=== PATIENT | male | born 1985 | race Caucasian/White ===

== ENCOUNTER 2023-04-17 05:02 | Inpatient (IN) | payer OTHER, SELFPAY ==
[2023-04-17] VITALS (16 sets, daily range): BP systolic 116–154; BP diastolic 82–113; PULSE 112–139; RESP 16–33; TEMP 36.4–37.1; O2SAT 92–98; BMI 37.9
--- NOTE | 2023-04-17 05:22 | ECG_ITS ---
[facility] Test Date: 2023-04-17 Pat Name: Bridger Mccabe Department: Room: Gender: Male Requirements Manager: : 1985 Requested By: Rogelio Duggan Order Number: [id number] [place] MD: Chuckie Levine M.D. Measurements Intervals [place] Rate: 132 P: 66 [place]: 119 QRS: 35 QRSD: 76 T: 66 QT: 277 QTc: 411 Interpretive Statements SINUS TACHYCARDIA WITH SHORT OH INTERVAL No previous ECG available for comparison Electronically Signed On 04-17-2023 12:29:50 CDT by Chuckie Levine M.D. [id number]
--- NOTE | 2023-04-17 05:24 | XRR_ITS ---
PROCEDURE INFORMATION: Exam: XR Chest Exam date and time: 04/17/2023 5:29 AM Age: 37 years old Clinical indication: Other: Tachycardia/diaphoresis; Patient HX: Epigastric pain with tachycardia and diaphoresis. ; Additional info: Ruq epigastric pain TECHNIQUE: Imaging protocol: Radiologic exam of the chest. Views: 1 view. COMPARISON: No relevant prior studies available. FINDINGS: Lungs: Small lung volumes with mild perihilar interstitial opacities, suggestive of pulmonary vascular congestion. Mild right upper lobe and bilateral medial basilar more confluent interstitial opacities and minimal airspace opacities are seen. Early multifocal pneumonia cannot be excluded. Recommend correlation with clinical findings and follow-up. Pleural spaces: No pleural effusion. No pneumothorax. Heart/Mediastinum: Normal heart size. Normal mediastinum. Midline trachea. Bones/joints: No acute osseous abnormalities seen. XR/XR chest 1V portable [id number] IMPRESSION: Small lung volumes with mild perihilar interstitial opacities, suggestive of pulmonary vascular congestion. Mild right upper lobe and bilateral medial basilar more confluent interstitial opacities and minimal airspace opacities. Early multifocal pneumonia cannot be excluded. Recommend correlation with clinical findings and follow-up.
[2023-04-17] MEDS: sodium chloride 0.9% 1,000 ML 999 ML IV (05:28)
[2023-04-17] MEDS: ondansetron 2 mg/ML SDV 2 mL 4 MG IVP (05:29)
[2023-04-17] MEDS: morphine 4 mg/mL SDV 1 mL IVP (05:29)
[2023-04-17 05:31] LABS: Basophils # 0.1 10^3/uL (0.0-0.1); Basophils % 0.5 %; Eosinophils % 0.2 %; Hemoglobin 17.4 g/dL (11.7-16.6); Lymphocytes # 1.1 10^3/uL (0.8-4.8); Lymphocytes % 4.6 %; Mean Corpuscular HGB Conc 34.8 g/dL (30.0-36.0); Mean Corpuscular Hemoglobin 31.5 pg (28.0-34.0); Mean Corpuscular Volume 90.6 fl (80-94); Mean Platelet Volume 9.9 fL (7.4-10.4); Monocytes # 1.8 10^3/uL (0.2-0.9); Neutrophils # 19.85 10^3/uL (1.8-7.7); Nucleated Red Blood Cells % 0 %; Platelet Count 412 10^3/cmm (130-400); Red Blood Count 5.52 10^6/uL (4.1-5.3); Red Cell Distribution Width 12.8 % (12.1-15.1); White Blood Count 23.1 10^3/uL (4.0-10.0)
[2023-04-17 05:54] LABS: Troponin(5th) Baseline 10 ng/L (0-15)
[2023-04-17 05:56] LABS: Alanine Aminotransferase 25 U/L (0-41); Albumin Level 4.5 g/dL (3.5-5.2); Alkaline Phosphatase 72 U/L (40-130); Aspartate Amino Transferase 25 U/L (0-40); Blood Urea Nitrogen 28 mg/dL (6-20); Calcium 9.7 mg/dL (8.5-10.5); Carbon Dioxide 22 mmol/L (22-29); Chloride 85 mmol/L (98-107); Globulin 3.5 g/dL (1.3-4.6); Glomerular Filtration Rate 33.5 mL/min (90-130); Glucose 141 mg/dL (65-115); Lipase 15 U/L (13-60); Osmolality Calculated 272 mOsm/kg (285-295); Sodium 127 mmol/L (136-145); Total Bilirubin 1.4 mg/dL (0.15-1.2)
--- NOTE | 2023-04-17 05:56 | ED_ITS ---
Documented by User: Rogelio Hester DO 04/17/23 15:54 HPI - Abdominal Pain General: Chief Complaint: Abdominal Pain Stated Complaint: ABD Pain Time Seen by Provider: 04/17/23 05:13 Source: patient and family History of Present Illness: 37-year-old male with right-sided upper abdominal pain radiating into his back and shoulder since last night. He notes that its hard to take a deep breath because it hurts. He is not overly short of breath. No overt chest discomfort. He has not had pain like this before. No history of abdominal surgery. No fever. MD elicited complaint: abdominal pain and flank pain Pertinent past history: diverticulitis Onset (ago): hour(s) Pain Consistency: constant Location: Chest, RUQ and R flank Severity: moderate Migration to: no migration Exacerbating factors: movement Relieving factors: nothing Associated Symptoms: Reports chills and nausea; Denies change in stool character, coffee ground emesis, dysuria, fever(s), hematochezia and vomiting Review of Systems Const: Reports: chills; Denies: fever(s) ENMT: Denies: throat pain Card: Reports: chest pain; Denies: palpitations Resp: Reports: dyspnea (mild); Denies: productive cough or non-productive cough GI: Reports: nausea; Denies: vomiting, coffee ground emesis, change in stool character or hematochezia : Denies: dysuria Musc: Denies: neck pain Skin/Breast: Denies: rash Course Vital Signs: Vital signs: Vital Signs Temperature 99.0 F 04/18/23 00:00 Pulse Rate 132 H 04/18/23 00:00 Respiratory Rate 21 H 04/18/23 04:00 Blood Pressure 114/77 04/18/23 00:00 Pulse Oximetry 93 04/18/23 00:00 Oxygen Delivery Me thod Room Air 04/18/23 00:00 MDM - Abdominal Pain Medical Decision Making Patient's EKG shows a sinus tachycardia with a rate of 130. [place] is normal. Intervals are normal. No acute ST changes. He is mildly hypertensive. He is tachypneic. His D-dimer is 6.21. Troponin is normal at 10. CTA has been ordered. He is given morphine and Zofran for pain and nausea. He will be checked out to the oncoming physician at shift change. Lab Data 04/18/23 03:04 04/18/23 03:04 Labs/Radiology: Radiology Impressions Chest X-Ray 04/17/23 05:24 IMPRESSION: Small lung volumes with mild perihilar interstitial opacities, suggestive of pulmonary vascular congestion. Mild right upper lobe and bilateral medial basilar more confluent interstitial opacities and minimal airspace opacities. Early multifocal pneumonia cannot be excluded. Recommend correlation with clinical findings and follow-up. Chest CTA 04/17/23 06:00 IMPRESSION: 1. No CTA evidence of pulmonary embolism, thoracic aortic aneurysm or thoracic aortic dissection. 2. Hypoaeration of the lungs with minimal perihilar hazy opacities. Mild left and minimal right lower lobe basilar atelectasis. No regions of consolidation to suggest pneumonia. 3. Mild distal esophageal fold prominence, which could be related to esophagitis. Recommend correlation with clinical findings. 4. Degenerative changes of the lower thoracic spine, as noted above. Gallbladder Ultrasound 04/17/23 06:18 IMPRESSION: 1. Gnio-cx-kcpxmaerww distended gallbladder. No definite gallstones or gallbladder wall thickening. No biliary ductal dilatation. Exam overall limited, related to bowel gas. Abdomen/Pelvis CT 04/17/23 09:27 IMPRESSION: 1. Acute complicated diverticulitis: Mild descending and moderate sigmoid colonic diverticulosis. Moderate proximal to mid sigmoid colonic wall thickening with adjacent fat stranding. Some extraluminal flecks of air and tiny amount of fluid seen adjacent to the mesenteric border of the mid sigmoid colon (series 3, image 47). 2nd more medial 1.9 x 3 x 2 cm air and fluid collection seen (series 3, image 76, series 5, image 21 and series 6, image 37). These findings are consistent with a small abscess. As an underlying colonic malignancy cannot be excluded, a follow-up examination after a course of treatment is recommended if clinically warranted. 2. Other nonacute findings, as noted above. Laboratory Results WBC 23.1 10^3/uL (4.0-10.0) H 04/17/23 05:20 RBC 5.52 10^6/uL (4.1-5.3) H 04/17/23 05:20 Hgb 17.4 g/dL (11.7-16.6) H 04/17/23 05:20 Hct 50.0 % (42.0-52.0) 06/24/23 05:20 MCV 90.6 fl (80-94) 04/17/23 05:20 MCH 31.5 pg (28.0-34.0) 04/17/23 05:20 MCHC 34.8 g/dL (30.0-36.0) 04/17/23 05:20 RDW 12.8 % (12.1-15.1) 04/17/23 05:20 Plt Count 412 10^3/cmm (130-400) H 04/17/23 05:20 MPV 9.9 fL (7.4-10.4) 04/17/23 05:20 Neut % (Auto) 86.0 % 04/17/23 05:20 Lymph % (Auto) 4.6 % 04/17/23 05:20 [place] % (Auto) 8.0 % 04/17/23 05:20 Eos % (Auto) 0.2 % 04/17/23 05:20 Baso % (Auto) 0.5 % 04/17/23 05:20 Neut # (Auto) 19.85 10^3/uL (1.8-7.7) H 04/17/23 05:20 Lymph # (Auto) 1.1 10^3/uL (0.8-4.8) 04/17/23 05:20 [place] # (Auto) 1.8 10^3/uL (0.2-0.9) H 04/17/23 05:20 Eos # (Auto) 0.0 10^3/uL (0.0-0.8) 04/17/23 05:20 Baso # (Auto) 0.1 10^3/uL (0.0-0.1) 04/17/23 05:20 Nucleated RBC % (auto) 0 % 04/17/23 05:20 Nucleated RBCs # 0.0 /100WBC 04/17/23 05:20 D-Dimer 6.21 ug/mIFEU (0-0.59) H 04/17/23 05:20 Specimen Type Arterial 04/17/23 07:50 Sample Site Radial, right 04/17/23 07:50 ABG pH 7.37 (7.35-7.45) 04/17/23 07:50 ABG pCO2 36.2 mmHg (35-45) 04/17/23 07:50 ABG pO2 75.1 mmHg (80.0-100.0) L 04/17/23 07:50 ABG HCO3 21.1 mmol/L (22-26) L 04/17/23 07:50 ABG Base Excess -3.5 mmol/L (-2.0-2.0) L 04/17/23 07:50 Obie Test Pos 04/17/23 07:50 Hematocrit 48.1 % (42-52) 04/17/23 07:50 O2 Delivery Device Room air 04/17/23 07:50 FiO2 21.0 % 04/17/23 07:50 Marine Fisheries Technician ID [place] 04/17/23 07:50 Sodium 127 mmol/L (136-145) L 04/17/23 05:20 Potassium 4.7 mmol/L (3.5-5.1) 04/17/23 05:20 Chloride 85 mmol/L (98-107) L 04/17/23 05:20 Carbon Dioxide 22 mmol/L (22-29) 04/17/23 05:20 Anion Gap 24.7 (5-19) H 04/17/23 05:20 BUN 28 mg/dL (6-20) H 04/17/23 05:20 Creatinine 2.2 mg/dL (0.7-1.2) H 04/17/23 05:20 GFR Calculation 33.5 mL/min (90-130) L 04/17/23 05:20 Glucose 141 mg/dL (65-115) H 04/17/23 05:20 Calculated Osmolality 272 mOsm/kg (285-295) L 04/17/23 05:20 Lactic Acid 2.1 mmol/L (0.5-2.2) 04/17/23 06:30 Lactic Acid (Sepsis) 1.6 mmol/L (0.5-2.2) 04/17/23 09:12 Calcium 9.7 mg/dL (8.5-10.5) 04/17/23 05:20 Total Bilirubin 1.4 mg/dL (0.15-1.2) H 04/17/23 05:20 AST 25 U/L (0-40) 04/17/23 05:20 ALT 25 U/L (0-41) 04/17/23 05:20 Alkaline Phosphatase 72 U/L (40-130) 04/17/23 05:20 Troponin T Baseline 10 ng/L (0-15) 04/17/23 05:20 Troponin T 120 Minute 6.93 ng/L (0-15) 04/17/23 07:20 Delta Troponin T -3.07 ABS# (0-10) L 04/17/23 07:20 C-Reactive Protein 367.2 mg/L (0.0-4.9) H 04/17/23 05:20 Total Protein 8.0 g/dL (6.6-8.7) 04/17/23 05:20 Albumin 4.5 g/dL (3.5-5.2) 04/17/23 05:20 Globulin 3.5 g/dL (1.3-4.6) 04/17/23 05:20 Lipase 15 U/L (13-60) 04/17/23 05:20 Urine Color Yellow (Yellow) 04/17/23 07:18 Urine Appearance Sl hazy (CLEAR) A 04/17/23 07:18 Urine pH 5 (5-7) 04/17/23 07:18 Ur Specific [place] 1.020 (1.005-1.030) 04/17/23 07:18 Urine Protein 1+ (Negative) H 04/17/23 07:18 Urine Glucose (UA) Norm (Normal) 04/17/23 07:18 Urine Ketones Negative (Negative) 04/17/23 07:18 Urine Blood 3+ (Negative) H 04/17/23 07:18 Urine Nitrate Negative (Negative) 04/17/23 07:18 Urine Bilirubin Neg (Negative) 04/17/23 07:18 Urine Urobilinogen 1 mg/dL (Negative) H 04/17/23 07:18 Ur Leukocyte Esterase Trace (Negative) H 04/17/23 07:18 Urine RBC None /hpf (0-2) 04/17/23 07:18 Urine WBC 5-10 /hpf (0-5) H 04/17/23 07:18 Ur Squamous Epith Cells None /hpf (0-5) 04/17/23 07:18 Amorphous Sediment Not Reportable 04/17/23 07:18 Urine Bacteria 1+ /hpf (NONE) H 04/17/23 07:18 Hyaline Casts 15-25 /lpf H 04/17/23 07:18 Urine Mucus 1+ /hpf 04/17/23 07:18 Critical Care Time Critical Care Time: Critical Care Time: Yes Total Critical Care Time: 35 Attestation: This case had a high probability of a clinically significant, sudden, or life threatening deterioration of this patient's condition which required my full and direct attention, intervention and personal management. Time is independent of any procedures performed. Discharge Plan Discharge Patient Disposition: Admitted As Inpatient Admit Provider: Syd Leo Clinical Impression: Diverticulitis of large intestine with complication, Acute kidney injury Condition: Serious Sign Out Sign Out Data: Patient Sign Out occurred on 04/17/23 at 08:07. Patient's care was discussed, and care was transferred from to Nathan Li DO. Coding Level of Care Code ED Assistant Terminal Manager for Chg Fwd Documented by User: Nathan Li DO 04/18/23 08:09 HPI - Abdominal Pain General: Chief Complaint: Abdominal Pain Stated Complaint: ABD Pain Time Seen by Provider: 04/17/23 05:13 Course Vital Signs: Vital signs: Vital Signs Temperature 99.0 F 04/18/23 00:00 Pulse Rate 132 H 04/18/23 00:00 Respiratory Rate 21 H 04/18/23 04:00 Blood Pressure 114/77 04/18/23 00:00 Pulse Oximetry 93 04/18/23 00:00 Oxygen Delivery Me thod Room Air 04/18/23 00:00 MDM - Abdominal Pain Medical Decision Making Patient's EKG shows a sinus tachycardia with a rate of 130. [place] is normal. Intervals are normal. No acute ST changes. He is mildly hypertensive. He is tachypneic. His D-dimer is 6.21. Troponin is normal at 10. CTA has been ordered. He is given morphine and Zofran for pain and nausea. He will be checked out to the oncoming physician at shift change. Care assumed at change of shift CTA of the chest is pending which was negative for acute pulmonary embolism. Patient has abdominal pain with markedly elevated white count. CT abdomen done shows diverticulitis with perforation discussed Dr. Ahmet Land and cultures have been done. Will admit IV fluids n.p.o. continue antibiotics discussed with the patient orders written. Medical Records I reviewed the patient's medical records. Lab Data I reviewed the patient's lab results. 04/18/23 03:04 04/18/23 03:04 Labs/Radiology: Radiology Impressions Chest X-Ray 04/17/23 05:24 IMPRESSION: Small lung volumes with mild perihilar interstitial opacities, suggestive of pulmonary vascular congestion. Mild right upper lobe and bilateral medial basilar more confluent interstitial opacities and minimal airspace opacities. Early multifocal pneumonia cannot be excluded. Recommend correlation with clinical findings and follow-up. Chest CTA 04/17/23 06:00 IMPRESSION: 1. No CTA evidence of pulmonary embolism, thoracic aortic aneurysm or thoracic aortic dissection. 2. Hypoaeration of the lungs with minimal perihilar hazy opacities. Mild left and minimal right lower lobe basilar atelectasis. No regions of consolidation to suggest pneumonia. 3. Mild distal esophageal fold prominence, which could be related to esophagitis. Recommend correlation with clinical findings. 4. Degenerative changes of the lower thoracic spine, as noted above. Gallbladder Ultrasound 04/17/23 06:18 IMPRESSION: 1. Skoh-ro-nhekhoooyd distended gallbladder. No definite gallstones or gallbladder wall thickening. No biliary ductal dilatation. Exam overall limited, related to bowel gas. Abdomen/Pelvis CT 04/17/23 09:27 IMPRESSION: 1. Acute complicated diverticulitis: Mild descending and moderate sigmoid colonic diverticulosis. Moderate proximal to mid sigmoid colonic wall thickening with adjacent fat stranding. Some extraluminal flecks of air and tiny amount of fluid seen adjacent to the mesenteric border of the mid sigmoid colon (series 3, image 47). 2nd more medial 1.9 x 3 x 2 cm air and fluid collection seen (series 3, image 76, series 5, image 21 and series 6, image 37). These findings are consistent with a small abscess. As an underlying colonic malignancy cannot be excluded, a follow-up examination after a course of treatment is recommended if clinically warranted. 2. Other nonacute findings, as noted above. Laboratory Results WBC 23.1 10^3/uL (4.0-10.0) H 04/17/23 05:20 RBC 5.52 10^6/uL (4.1-5.3) H 04/17/23 05:20 Hgb 17.4 g/dL (11.7-16.6) H 04/17/23 05:20 Hct 50.0 % (42.0-52.0) 04/17/23 05:20 MCV 90.6 fl (80-94) 04/17/23 05:20 MCH 31.5 pg (28.0-34.0) 04/17/23 05:20 MCHC 34.8 g/dL (30.0-36.0) 04/17/23 05:20 RDW 12.8 % (12.1-15.1) 04/17/23 05:20 Plt Count 412 10^3/cmm (130-400) H 04/17/23 05:20 MPV 9.9 fL (7.4-10.4) 04/17/23 05:20 Neut % (Auto) 86.0 % 04/17/23 05:20 Lymph % (Auto) 4.6 % 04/17/23 05:20 [place] % (Auto) 8.0 % 04/17/23 05:20 Eos % (Auto) 0.2 % 04/17/23 05:20 Baso % (Auto) 0.5 % 04/17/23 05:20 Neut # (Auto) 19.85 10^3/uL (1.8-7.7) H 04/17/23 05:20 Lymph # (Auto) 1.1 10^3/uL (0.8-4.8) 04/17/23 05:20 [place] # (Auto) 1.8 10^3/uL (0.2-0.9) H 04/17/23 05:20 Eos # (Auto) 0.0 10^3/uL (0.0-0.8) 04/17/23 05:20 Baso # (Auto) 0.1 10^3/uL (0.0-0.1) 04/17/23 05:20 Nucleated RBC % (auto) 0 % 04/17/23 05:20 Nucleated RBCs # 0.0 /100WBC 04/17/23 05:20 D-Dimer 6.21 ug/mIFEU (0-0.59) H 04/17/23 05:20 Specimen Type Arterial 04/17/23 07:50 Sample Site Radial, right 04/17/23 07:50 ABG pH 7.37 (7.35-7.45) 04/17/23 07:50 ABG pCO2 36.2 mmHg (35-45) 04/17/23 07:50 ABG pO2 75.1 mmHg (80.0-100.0) L 04/17/23 07:50 ABG HCO3 21.1 mmol/L (22-26) L 04/17/23 07:50 ABG Base Excess -3.5 mmol/L (-2.0-2.0) L 04/17/23 07:50 Obie Test Pos 04/17/23 07:50 Hematocrit 48.1 % (42-52) 04/17/23 07:50 O2 Delivery Device Room air 04/17/23 07:50 FiO2 21.0 % 04/17/23 07:50 Marine Fisheries Technician ID [place] 04/17/23 07:50 Sodium 127 mmol/L (136-145) L 04/17/23 05:20 Potassium 4.7 mmol/L (3.5-5.1) 04/17/23 05:20 Chloride 85 mmol/L (98-107) L 04/17/23 05:20 Carbon Dioxide 22 mmol/L (22-29) 04/17/23 05:20 Anion Gap 24.7 (5-19) H 04/17/23 05:20 BUN 28 mg/dL (6-20) H 04/17/23 05:20 Creatinine 2.2 mg/dL (0.7-1.2) H 04/17/23 05:20 GFR Calculation 33.5 mL/min (90-130) L 04/17/23 05:20 Glucose 141 mg/dL (65-115) H 04/17/23 05:20 Calculated Osmolality 272 mOsm/kg (285-295) L 04/17/23 05:20 Lactic Acid 2.1 mmol/L (0.5-2.2) 04/17/23 06:30 Lactic Acid (Sepsis) 1.6 mmol/L (0.5-2.2) 04/17/23 09:12 Calcium 9.7 mg/dL (8.5-10.5) 04/17/23 05:20 Total Bilirubin 1.4 mg/dL (0.15-1.2) H 04/17/23 05:20 AST 25 U/L (0-40) 04/17/23 05:20 ALT 25 U/L (0-41) 04/17/23 05:20 Alkaline Phosphatase 72 U/L (40-130) 04/17/23 05:20 Troponin T Baseline 10 ng/L (0-15) 04/17/23 05:20 Troponin T 120 Minute 6.93 ng/L (0-15) 04/17/23 07:20 Delta Troponin T -3.07 ABS# (0-10) L 04/17/23 07:20 C-Reactive Protein 367.2 mg/L (0.0-4.9) H 04/17/23 05:20 Total Protein 8.0 g/dL (6.6-8.7) 04/17/23 05:20 Albumin 4.5 g/dL (3.5-5.2) 04/17/23 05:20 Globulin 3.5 g/dL (1.3-4.6) 04/17/23 05:20 Lipase 15 U/L (13-60) 04/17/23 05:20 Urine Color Yellow (Yellow) 04/17/23 07:18 Urine Appearance Sl hazy (CLEAR) A 04/17/23 07:18 Urine pH 5 (5-7) 04/17/23 07:18 Ur Specific [place] 1.020 (1.005-1.030) 04/17/23 07:18 Urine Protein 1+ (Negative) H 04/17/23 07:18 Urine Glucose (UA) Norm (Normal) 04/17/23 07:18 Urine Ketones Negative (Negative) 04/17/23 07:18 Urine Blood 3+ (Negative) H 04/17/23 07:18 Urine Nitrate Negative (Negative) 04/17/23 07:18 Urine Bilirubin Neg (Negative) 04/17/23 07:18 Urine Urobilinogen 1 mg/dL (Negative) H 04/17/23 07:18 Ur Leukocyte Esterase Trace (Negative) H 04/17/23 07:18 Urine RBC None /hpf (0-2) 04/17/23 07:18 Urine WBC 5-10 /hpf (0-5) H 04/17/23 07:18 Ur Squamous Epith Cells None /hpf (0-5) 04/17/23 07:18 Amorphous Sediment Not Reportable 04/17/23 07:18 Urine Bacteria 1+ /hpf (NONE) H 04/17/23 07:18 Hyaline Casts 15-25 /lpf H 04/17/23 07:18 Urine Mucus 1+ /hpf 04/17/23 07:18 Discharge Plan Discharge Patient Disposition: Admitted As Inpatient Admit Provider: Syd Leo Clinical Impression: Diverticulitis of large intestine with complication, Acute kidney injury Condition: Serious Sign Out Sign Out Data: Patient Sign Out occurred on 04/17/23 at 08:07. Patient's care was discussed, and care was transferred from to Nathan Li DO. Coding Level of Care Code ED Assistant Terminal Manager for Carlos Lazcano
[2023-04-17 05:58] LABS: D Dimer 6.21 ug/mIFEU (0-0.59)
[2023-04-17 05:59] LABS: Anion Gap 24.7 (5-19); Potassium 4.7 mmol/L (3.5-5.1)
--- NOTE | 2023-04-17 06:00 | CTR_ITS ---
PROCEDURE INFORMATION: Exam: CTA Chest With Contrast Exam date and time: 04/17/2023 6:13 AM Age: 37 years old Clinical indication: Pain; Chest pressure; Additional info: Chest pain TECHNIQUE: Imaging protocol: Computed tomographic angiography of the chest with contrast. Exam focused on the arteries. 3D rendering (Not supervised by radiologist): MIP and/or 3D reconstructed images were created by the technologist. Radiation optimization: All CT scans at this facility use at least one of these dose optimization techniques: automated exposure control; mA and/or kV adjustment per patient size (includes targeted exams where dose is matched to clinical indication); or iterative reconstruction. Contrast material: OMNI 350; Contrast volume: 79 ml; Contrast route: INTRAVENOUS (IV); REPORTING DATA: Count of CT and Cardiac NM exams in prior 12 months: This patient has received 0 known CTs and 0 known cardiac nuclear medicine studies in the 12 months prior to the current study. COMPARISON: CR (CHEST, ) 04/17/2023 5:29 AM RADIATION DOSE METRICS: Total DLP (mGy-cm): 461.14 FINDINGS: Pulmonary arteries: No CT evidence for segmental pulmonary emboli. The main pulmonary arteries and outflow trunk are unremarkable. Aorta: No thoracic aortic aneurysm. No thoracic aortic dissection. Trachea: The central airway is normal. Lungs: Small lung volumes. Hypoaeration of the lungs with minimal perihilar hazy opacities. Mild left and minimal right lower lobe basilar atelectasis. No regions of consolidation to suggest pneumonia. No interlobular septal thickening or honeycombing seen to suggest interstitial lung disease on CT. Pleural spaces: No pneumothorax. No pleural effusion. Heart: The heart size is within normal limits. The RV/LV ratio is normal at 1 (no CT evidence of RV strain). There is no pericardial effusion. No coronary arterial atherosclerotic vascular calcifications. Lymph nodes: Nonspecific prominent subcentimeter multiple prevascular lymph nodes are seen, the largest measuring 0.8 x 0.8 cm (series 6, images 113 to 155). No right paratracheal, pretracheal, subcarinal or hilar lymphadenopathy. Bones/joints: No acute osseous abnormalities. Mild kyphotic curvature of the thoracic spine. Multiple Schmorl's nodes in the lower thoracic region. Wedge-shaped contour of the T12 vertebral body is seen with 20% vertebral body height loss, age indeterminate. Moderate degenerative disc disease changes are seen in the lower thoracic spine. Soft tissues: Unremarkable. Other findings: Mild distal esophageal fold prominence, which could be related to esophagitis. Recommend correlation with clinical findings. CT/CT angio chest PE protcl [id number] IMPRESSION: 1. No CTA evidence of pulmonary embolism, thoracic aortic aneurysm or thoracic aortic dissection. 2. Hypoaeration of the lungs with minimal perihilar hazy opacities. Mild left and minimal right lower lobe basilar atelectasis. No regions of consolidation to suggest pneumonia. 3. Mild distal esophageal fold prominence, which could be related to esophagitis. Recommend correlation with clinical findings. 4. Degenerative changes of the lower thoracic spine, as noted above.
[2023-04-17 06:07] LABS: Slide Review Slide Review Perform
[2023-04-17 06:09] LABS: C Reactive Protein 367.2 mg/L (0.0-4.9)
[2023-04-17] MEDS: iohexol 350 mg/mL 500 mL Btl (per mL) IV (06:14)
--- NOTE | 2023-04-17 06:18 | USR_ITS ---
PROCEDURE INFORMATION: Exam: US Abdomen, Limited; Right Upper Quadrant Exam date and time: 04/17/2023 8:27 AM Age: 37 years old Clinical indication: Abdominal pain; Epigastric; Additional info: Ruq pain TECHNIQUE: Imaging protocol: Real time ultrasound of the abdomen with image documentation. Limited exam focused on the right upper quadrant. COMPARISON: CT angio chest PE protcl [id number] 04/17/2023 6:13 AM FINDINGS: Liver: Assessment of the liver is very limited due to body habitus and bowel gas. Normal visualized liver parenchymal echo texture. Main portal vein appears unremarkable. Gallbladder: The nlwd-oo-sclrdkvvcg distended gallbladder. There are no gallstones, gallbladder sludge, pericholecystic fluid or wall thickening. Biliary ducts: The intrahepatic and extrahepatic bile ducts are not dilated with the common bile duct measuring 0.5 cm. The distal common bile duct is not well seen. Pancreas: Not well seen, related to bowel gas in the abdomen. Right kidney: The right kidney measures 10.6 x 6.3 x 5.2 cm. There is normal renal contour and morphology, with normal parenchymal echotexture. There is no hydronephrosis. Aorta: Not well seen, related to bowel gas in the abdomen. Inferior vena cava: Not well seen, related to bowel gas in the abdomen. Intraperitoneal space: There is no right abdominal ascites. Other findings: Exam overall limited due to bowel gas in the abdomen. US/US gall bladder [id number] IMPRESSION: 1. Duyd-eh-ixssytbxss distended gallbladder. No definite gallstones or gallbladder wall thickening. No biliary ductal dilatation. Exam overall limited, related to bowel gas.
[2023-04-17] MEDS: piperacillin-tazobactam 4.5 GM in sodium chloride 0.9% (plus) 50 ML IV (06:55)
[2023-04-17 07:10] LABS: Lactic Sepsis W/Reflex 2.1 mmol/L (0.5-2.2)
--- NOTE | 2023-04-17 07:21 | ECG_ITS ---
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 Measurements Intervals [place] Rate: 128 P: 65 IN: 127 QRS: 34 QRSD: 85 T: 35 QT: 290 QTc: 424 Interpretive Statements SINUS TACHYCARDIA NONSPECIFIC T-WAVE ABNORMALITY No previous ECG available for comparison Electronically Signed On 04-17-2023 8:36:25 CDT by Chuckie Levine M.D. [id number]
[2023-04-17 07:45] LABS: Blood Urine 3+ (Negative); Glucose Urine UA Norm (Normal); Ketones Urine Negative (Negative); Nitrate Urine Negative (Negative); Protein Urine 1+ (Negative); Urine Appearance SL Hazy (CLEAR); Urine Color Yellow (Yellow); pH Urine 5 (5-7)
[2023-04-17 07:46] LABS: Add Urine Microscopic? YES; Bilirubin Urine Neg (Negative); Leukocyte Esterase Urine Trace (Negative); Urobilinogen Urine 1 mg/dL (Negative)
[2023-04-17 07:49] LABS: Bacteria Urine 1+ /hpf; Mucus Urine 1+ /hpf
[2023-04-17 07:50] LABS: Hyaline Casts Urine 15-25 /lpf
[2023-04-17 07:51] LABS: Add Urine Culture? No
[2023-04-17 07:57] LABS: Troponin 5 2HR 6.93 ng/L (0-15)
[2023-04-17 08:04] LABS: ABG PCO2 36.2 mmHg (35-45); ABG PH Result 7.37 (7.35-7.45); Arterial Blood Gas Hematocrit 48.1 % (42-52); Base Excess ABG -3.5 mmol/L (-2.0-2.0); Blood Gas Allen Test Pos; Blood Gas Operator Identificat MONRO; Blood Gas Sample Site Radial, right; Blood Gas Sample Type Arterial; HCO3 ABG 21.1 mmol/L (22-26); Oxygen Device ROOM AIR; PO2 ABG 75.1 mmHg (80.0-100.0)
[2023-04-17 08:13] LABS: Reflex Lactate Order REFLEX LACTIC ORDERD
[2023-04-17 08:21] LABS: Troponin 5 2HR Delta -3.07 ABS# (0-10)
--- NOTE | 2023-04-17 09:27 | CTR_ITS ---
PROCEDURE INFORMATION: Exam: CT Abdomen And Pelvis Without Contrast Exam date and time: 04/17/2023 9:57 AM Age: 37 years old Clinical indication: Abdominal pain; Flank; Right; Patient HX: Had cta chest at 0600 TECHNIQUE: Imaging protocol: Computed tomography of the abdomen and pelvis without contrast. Radiation optimization: All CT scans at this facility use at least one of these dose optimization techniques: automated exposure control; mA and/or kV adjustment per patient size (includes targeted exams where dose is matched to clinical indication); or iterative reconstruction. REPORTING DATA: Count of CT and Cardiac NM exams in prior 12 months: This patient has received 0 known CTs and 0 known cardiac nuclear medicine studies in the 12 months prior to the current study. COMPARISON: US gall bladder [id number] 04/17/2023 8:27 AM RADIATION DOSE METRICS: Total DLP (mGy-cm): 1136.57 FINDINGS: Lungs: Minimal left lower lobe atelectasis is seen. Mild left coronary arterial atherosclerotic vascular calcifications. Liver: The non-contrast enhanced liver appears unremarkable. Gallbladder and bile ducts: Moderately distended gallbladder. No calcified stones. No biliary ductal dilatation. Pancreas: The non-contrast enhanced pancreas appears grossly unremarkable. No ductal dilation. Spleen: The non-contrast enhanced spleen appears unremarkable. No splenomegaly. Adrenal glands: Unremarkable non-contrast CT appearance of the adrenals. No definte masses. Kidneys and ureters: The noncontrast enhanced kidneys show no contour deforming masses. Residual contrast material is seen in bilateral renal collecting systems with segmental contrast filling of the ureters, which appear unremarkable. Stomach and bowel: The noncontrast opacified stomach appears normal. Small hiatal hernia is seen. The noncontrast opacified loops of small bowel in the abdomen and pelvis show some mildly distended fluid-filled loops of small bowel in the pelvis, likely representing adynamic ileus. The noncontrast opacified loops of colon show some fluid in the transverse colon. There is mild descending and moderate sigmoid colonic diverticulosis. Moderate proximal to mid sigmoid colonic wall thickening is seen with adjacent fat stranding. These findings are suggestive of acute diverticulitis. Some extraluminal flecks of air and tiny amount of fluid is seen adjacent to the mesenteric border of the mid sigmoid colon (series 3, image 47). There is also a 2nd more medial 1.9 x 3 x 2 cm air and fluid collection seen (series 3, image 76, series 5, image 21 and series 6, image 37). These findings are consistent with a small abscess. As an underlying colonic malignancy cannot be excluded, a follow-up examination after a course of treatment is recommended if clinically warranted. Appendix: No evidence of appendicitis. Intraperitoneal space: No free air. No significant fluid collection. Vasculature: No abdominal aortic aneurysm. Lymph nodes: No enlarged lymph nodes. Urinary bladder: The contrast filled bladder appears normal. Reproductive: Unremarkable as visualized. Bones/joints: No acute osseous abnormality seen. Moderate kyphotic curvature of the visualized lower thoracic spine is seen. Severe degenerative disc disease changes and multiple Schmorl's nodes are seen in the lower thoracic and upper to mid lumbar spine regions. There is osteopenia. Mild bilateral hip degenerative changes. Soft tissues: Small umbilical hernia, containing peritoneal fat. CT/CT abdomen pelvis wo con [id number] IMPRESSION: 1. Acute complicated diverticulitis: Mild descending and moderate sigmoid colonic diverticulosis. Moderate proximal to mid sigmoid colonic wall thickening with adjacent fat stranding. Some extraluminal flecks of air and tiny amount of fluid seen adjacent to the mesenteric border of the mid sigmoid colon (series 3, image 47). 2nd more medial 1.9 x 3 x 2 cm air and fluid collection seen (series 3, image 76, series 5, image 21 and series 6, image 37). These findings are consistent with a small abscess. As an underlying colonic malignancy cannot be excluded, a follow-up examination after a course of treatment is recommended if clinically warranted. 2. Other nonacute findings, as noted above.
[2023-04-17 09:38] LABS: Lactic Acid level (Lactate) 1.6 mmol/L (0.5-2.2)
--- NOTE | 2023-04-17 11:25 | ECG_ITS ---
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 Measurements Intervals Scott Rate: 124 P: 56 DC: 125 QRS: 37 QRSD: 89 T: 33 QT: 336 QTc: 484 Interpretive Statements SINUS TACHYCARDIA NONSPECIFIC T-WAVE ABNORMALITY Compared to ECG 04/17/2023 07:21:02 No significant changes Electronically Signed On 04-17-2023 12:30:19 CDT by Chuckie Levine M.D. [email or web address]
--- NOTE | 2023-04-17 13:00 | PM.HP ---
Providers/Chief Complaint Admitting Physician: Syd Leo DO Chief Complaint: ABD Pain History of Present Illness Bridger Mccabe is a 37 year old male presents to the hospital with a 3-day history of right lower quadrant abdominal pain. He does endorse fever and chills at home. Denies any nausea or vomiting. Denies any diarrhea or constipation. Denies any hematochezia and/or melena. Palpation makes pain worse. Nothing makes pain better. The pain does not radiate. He denies any family history of colon cancer. He has never had a colonoscopy. CT of the abdomen pelvis shows complicated diverticulitis with microperforation and early abscess formation up to 3 cm in the pelvis. Review of Systems General: Reports: 10 or more systems reviewed and unremarkable except in HPI and below Medications/Allergies Home Medications Medication Instructions Recorded Confirmed Last Taken Type amoxicillin 875 mg-potassium 1 tab PO BID 04/17/23 04/17/23 04/16/23 History clavulanate 125 mg tablet hydrocodone 5 mg-acetaminophen 325 1 tab PO Q6H PRN Pain 04/17/23 04/17/23 04/17/23 History mg tablet Vitals/I&O/Wt Last Vital Signs Temp 97.6 F 04/17/23 05:12 Pulse 118 H 04/17/23 12:00 Resp 18 04/17/23 12:00 BP 130/89 04/17/23 09:00 Pulse Ox 96 04/17/23 10:00 O2 Del Method Room Air 04/17/23 08:33 04/16/23 04/17/23 04/17/23 22:59 06:59 14:59 Intake Total 1050 / 1050 Balance 1050 / 1050 Weight last 48 hrs Weight 235 lb Physical Exam Narrative: General : Patient is well developed , no acute distress, oriented x3 Head : Normal cephalic, a-traumatic. Ears : Pinnae and external canal are normal. Hearing is normal. Eyes : PERRLA, Sclera and injection are normal. No conjunctival discharge. Nose : Mucous membranes are without erythema. Throat : buccal mucosa is normal, gums are without significant recession or hypertrophy. Lungs : Equal chest rise bilaterally, no use of accessory muscles, trachea is midline. Cor : Rate and rhythm are normal. Abdomen : Soft, mildly distended, mild right lower quadrant tenderness, no guarding rebound or masses Extremities : No edema, no cyanosis or clubbing, dorsalis pedis pulses are present bilaterally, non-tender to palpation of calves. Upper extremities are normal bilaterally. Back : non-tender to palpation, no CVA tenderness. Neuro : CN II - XII intact, Upper and lower extremities have equal and full strength Data 04/17/23 05:20 04/17/23 05:20 Micro: Microbiology 04/17/23 06:30 Blood Culture - Preliminary Blood SPECIMEN COLLECTED 04/17/23 06:30 Blood Culture - Preliminary Blood SPECIMEN COLLECTED A&P Assessment and plan (1) Diverticulitis of large intestine with complication: (2) Severe sepsis: (3) Acute kidney injury: Plan Zosyn Normal saline at 200 mL/h Pain control N.p.o. Repeat labs in the morning Conservative management for now. If he worsens he will need a Alanis's procedure. Ideally he improves and goes home on a regular diet with follow-up for a colonoscopy in 6 to 8 weeks followed by elective sigmoidectomy. Attestations Medical Necessity Statement*: Patient requires at least 2 nights in the hospital for IV antibiotics and therapy for complicated diverticulitis Coding Level of Care Code Acute Code for [facility] Diagnoses Diverticulitis of large intestine with complication K57.32 Severe sepsis A41.9; R65.20 Acute kidney injury N17.9
[2023-04-17] MEDS: pantoprazole 40 mg SDV IVP (14:03)
[2023-04-17] MEDS: sodium chloride 0.9% 1,000 ML 200 ML IV ×2 (14:04→18:15)
[2023-04-17] MEDS: enoxaparin 40 mg/0.4 mL Syringe SUBCUT (14:05)
[2023-04-17] MEDS: HYDROmorphone 1 mg/mL INJ 1 mL IVP (15:23)
[2023-04-17] MEDS: piperacillin-tazobactam 3.375 GM in sodium chloride 0.9% (plus) 50 ML IV ×2 (15:23→23:05)
[2023-04-18] VITALS (7 sets, daily range): BP systolic 114–135; BP diastolic 77–87; PULSE 60–132; RESP 17–26; TEMP 36.4–37.5; O2SAT 90–95
[2023-04-18] MEDS: sodium chloride 0.9% 1,000 ML 200 ML IV ×5 (00:45→21:05)
[2023-04-18 04:01] LABS: Basophils # 0.1 10^3/uL (0.0-0.1); Basophils % 0.3 %; Hemoglobin 13.5 g/dL (11.7-16.6); Lymphocytes # 0.5 10^3/uL (0.8-4.8); Lymphocytes % 3.4 %; Mean Corpuscular HGB Conc 35.5 g/dL (30.0-36.0); Mean Corpuscular Hemoglobin 32.6 pg (28.0-34.0); Mean Corpuscular Volume 91.8 fl (80-94); Mean Platelet Volume 10.3 fL (7.4-10.4); Monocytes # 1.2 10^3/uL (0.2-0.9); Monocytes % 7.6 %; Neutrophils % 87.6 %; Nucleated Red Blood Cells % 0 %; Platelet Count 312 10^3/cmm (130-400); Red Blood Count 4.14 10^6/uL (4.1-5.3); Red Cell Distribution Width 13.3 % (12.1-15.1); White Blood Count 15.8 10^3/uL (4.0-10.0)
[2023-04-18 04:17] LABS: Anion Gap 16.7 (5-19); Blood Urea Nitrogen 20 mg/dL (6-20); Calcium 8.6 mg/dL (8.5-10.5); Carbon Dioxide 23 mmol/L (22-29); Chloride 96 mmol/L (98-107); Glomerular Filtration Rate 107.6 mL/min (90-130); Glucose 79 mg/dL (65-115); Magnesium 1.8 mg/dL (1.7-2.3); Osmolality Calculated 276 mOsm/kg (285-295); Phosphorus 2.6 mg/dL (2.5-4.5); Potassium 3.7 mmol/L (3.5-5.1); Sodium 132 mmol/L (136-145)
[2023-04-18 04:24] LABS: Lactic Sepsis W/Reflex 1.3 mmol/L (0.5-2.2)
[2023-04-18 04:26] LABS: Alanine Aminotransferase 15 U/L (0-41); Albumin Level 2.9 g/dL (3.5-5.2); Alkaline Phosphatase 240 U/L (40-130); Anion Gap 16.7 (5-19); Aspartate Amino Transferase 11 U/L (0-40); Blood Urea Nitrogen 20 mg/dL (6-20); Calcium 8.5 mg/dL (8.5-10.5); Carbon Dioxide 23 mmol/L (22-29); Chloride 96 mmol/L (98-107); Globulin 3.5 g/dL (1.3-4.6); Glomerular Filtration Rate 107.6 mL/min (90-130); Glucose 77 mg/dL (65-115); Osmolality Calculated 275 mOsm/kg (285-295); Potassium 3.7 mmol/L (3.5-5.1); Sodium 132 mmol/L (136-145); Total Bilirubin 0.5 mg/dL (0.15-1.2); Total Protein 6.4 g/dL (6.6-8.7)
[2023-04-18 04:40] LABS: Slide Review Slide Review Perform
[2023-04-18] MEDS: piperacillin-tazobactam 3.375 GM in sodium chloride 0.9% (plus) 50 ML IV ×3 (06:37→22:33)
[2023-04-18] MEDS: HYDROmorphone 1 mg/mL INJ 1 mL IVP (08:52)
--- NOTE | 2023-04-18 11:48 | PM.PN ---
Subjective Subjective: Patient seen and examined. Pain improved. Still no BM or flatus Vitals/I&O/Wt Last Vital Signs Temp 97.5 F L 04/18/23 08:00 Pulse 124 H 04/18/23 08:00 Resp 18 04/18/23 08:52 BP 122/81 04/18/23 08:00 Pulse Ox 93 04/18/23 08:52 O2 Del Method Room Air 04/18/23 08:00 04/17/23 04/18/23 04/18/23 22:59 06:59 14:59 Intake Total 886.667 / 1837.216 9985 / 3986.667 1050 / 1050 Balance 886.667 / 2230.512 6863 / 3986.667 1050 / 1050 Weight last 48 hrs Weight 235 lb Physical Exam Narrative: : No acute distress, awake alert and oriented x3 Abdomen: Soft, nondistended, mild left lower quadrant tenderness, no guarding rebound or masses Data 04/19/23 06:42 04/19/23 06:42 Micro: Microbiology 04/17/23 06:30 Blood Culture - Preliminary Blood NEGATIVE TO DATE 04/17/23 06:30 Blood Culture - Preliminary Blood NEGATIVE TO DATE A&P Assessment and plan (1) Diverticulitis of large intestine with complication: Plan IV antibiotics IV fluids Pain control Clear liquid diet Repeat labs in the morning If he passes conservative management, he will need a colonoscopy in 4 to 6 weeks followed by elective sigmoidectomy Attestations Medical Necessity Statement*: Patient requires at least 2 more nights in the hospital for IV antibiotics and recovery from complicated diverticulitis. Coding Level of Care Code Acute Code for [facility] Diagnoses Diverticulitis of large intestine with complication K57.32
[2023-04-18] MEDS: pantoprazole 40 mg SDV IVP (14:58)
[2023-04-18] MEDS: enoxaparin 40 mg/0.4 mL Syringe SUBCUT (14:59)
[2023-04-18] MEDS: ondansetron 2 mg/ML SDV 2 mL 4 MG IVP (17:00)
[2023-04-19] VITALS (7 sets, daily range): BP systolic 118–141; BP diastolic 72–91; PULSE 102–119; RESP 16–20; TEMP 36.7–37.5; O2SAT 94–98
[2023-04-19] MEDS: sodium chloride 0.9% 1,000 ML 200 ML IV ×2 (01:56→06:31)
[2023-04-19] MEDS: piperacillin-tazobactam 3.375 GM in sodium chloride 0.9% (plus) 50 ML IV ×2 (06:31→19:25)
[2023-04-19 06:57] LABS: Basophils # 0.1 10^3/uL (0.0-0.1); Basophils % 0.5 %; Eosinophils % 0.1 %; Hematocrit 37.5 % (42.0-52.0); Lymphocytes # 0.7 10^3/uL (0.8-4.8); Lymphocytes % 6.2 %; Mean Corpuscular HGB Conc 34.7 g/dL (30.0-36.0); Mean Corpuscular Hemoglobin 32.3 pg (28.0-34.0); Mean Corpuscular Volume 93.1 fl (80-94); Mean Platelet Volume 9.9 fL (7.4-10.4); Monocytes # 0.8 10^3/uL (0.2-0.9); Monocytes % 7.1 %; Neutrophils % 84.5 %; Nucleated Red Blood Cells % 0 %; Platelet Count 325 10^3/cmm (130-400); Red Blood Count 4.03 10^6/uL (4.1-5.3); Red Cell Distribution Width 13.9 % (12.1-15.1); White Blood Count 10.9 10^3/uL (4.0-10.0)
[2023-04-19 07:13] LABS: Anion Gap 16.6 (5-19); Blood Urea Nitrogen 20 mg/dL (6-20); Calcium 8.6 mg/dL (8.5-10.5); Carbon Dioxide 23 mmol/L (22-29); Chloride 98 mmol/L (98-107); Glucose 100 mg/dL (65-115); Magnesium 1.9 mg/dL (1.7-2.3); Osmolality Calculated 281 mOsm/kg (285-295); Phosphorus 1.7 mg/dL (2.5-4.5); Potassium 3.6 mmol/L (3.5-5.1); Sodium 134 mmol/L (136-145)
--- NOTE | 2023-04-19 12:37 | PM.PN ---
Subjective Subjective: Patient seen and examined. Pain improved. Passing flatus and having bowel movements. Vitals/I&O/Wt Last Vital Signs Temp 99.2 F 04/19/23 11:21 Pulse 102 H 04/19/23 11:21 Resp 18 04/19/23 11:21 BP 138/88 04/19/23 11:21 Pulse Ox 97 04/19/23 11:21 O2 Del Method Room Air 04/19/23 11:21 04/18/23 04/19/23 04/19/23 22:59 06:59 14:59 Intake Total 2170 / 3220 2086.667 / 5306.667 746.667 / 746.667 Balance 2170 / 3220 2086.667 / 5306.667 746.667 / 746.667 Physical Exam Narrative: : No acute distress, awake alert and oriented x3 Abdomen: Soft, nondistended, mild left lower quadrant tenderness, no guarding rebound or masses Data 04/19/23 06:42 04/19/23 06:42 A&P Assessment and plan (1) Diverticulitis of large intestine with complication: Plan IV antibiotics IV fluids Pain control Full liquid diet Repeat labs in the morning If he passes conservative management, he will need a colonoscopy in 4 to 6 weeks followed by elective sigmoidectomy Attestations Medical Necessity Statement*: Patient requires at least 1 more night in the hospital for IV antibiotics and recovery from complicated diverticulitis. Coding Level of Care Code 17639 Diagnoses Diverticulitis of large intestine with complication K57.32
[2023-04-19] MEDS: potassium phosphate (mEq K) 40 MEQ in sodium chloride 0.9% (100 ml) 100 ML 27.25 MEQ IV (13:12)
[2023-04-19] MEDS: pantoprazole 40 mg SDV IVP (13:19)
[2023-04-19] MEDS: enoxaparin 40 mg/0.4 mL Syringe SUBCUT (13:19)
[2023-04-19] MEDS: sodium chloride 0.9% 1,000 ML 75 ML IV (19:19)
[2023-04-19] MEDS: ondansetron 2 mg/ML SDV 2 mL 4 MG IVP (22:34)
[2023-04-20] MEDS: piperacillin-tazobactam 3.375 GM in sodium chloride 0.9% (plus) 50 ML IV ×3 (03:53→20:18)
[2023-04-20 04:00] VITALS: BP 124/81; PULSE 106; RESP 18; TEMP 36.9; O2SAT 95
[2023-04-20 05:20] LABS: Basophils # 0.1 10^3/uL (0.0-0.1); Basophils % 0.3 %; Eosinophils % 0.1 %; Hematocrit 33.7 % (42.0-52.0); Hemoglobin 11.3 g/dL (11.7-16.6); Lymphocytes % 6.5 %; Mean Corpuscular HGB Conc 33.5 g/dL (30.0-36.0); Mean Corpuscular Hemoglobin 31.3 pg (28.0-34.0); Mean Corpuscular Volume 93.4 fl (80-94); Mean Platelet Volume 9.9 fL (7.4-10.4); Monocytes # 1.4 10^3/uL (0.2-0.9); Monocytes % 9.3 %; Neutrophils # 12.34 10^3/uL (1.8-7.7); Neutrophils % 80.9 %; Nucleated Red Blood Cells % 0 %; Platelet Count 315 10^3/cmm (130-400); Red Blood Count 3.61 10^6/uL (4.1-5.3); Red Cell Distribution Width 14.2 % (12.1-15.1); White Blood Count 15.2 10^3/uL (4.0-10.0)
--- NOTE | 2023-04-20 05:25 | PC.NURSE ---
GAS/BLOATING c/o alot of gas this morning. Says is passing and has had several loose BM's. Denies pain or nausea at this time. Enc to ambulate and went for walk with pt in mccabe. Went to bathroom on return to room and says he passed alot of gas and feels better. Enc to get out in mccabe and ambulate today
[2023-04-20 05:37] LABS: Anion Gap 14.4 (5-19); Blood Urea Nitrogen 13 mg/dL (6-20); Calcium 8.4 mg/dL (8.5-10.5); Carbon Dioxide 24 mmol/L (22-29); Chloride 100 mmol/L (98-107); Glomerular Filtration Rate 185.1 mL/min (90-130); Glucose 101 mg/dL (65-115); Magnesium 1.8 mg/dL (1.7-2.3); Osmolality Calculated 280 mOsm/kg (285-295); Phosphorus 2.3 mg/dL (2.5-4.5); Potassium 3.4 mmol/L (3.5-5.1); Sodium 135 mmol/L (136-145)
[2023-04-20 08:00] VITALS: BP 145/93; PULSE 103; RESP 15; O2SAT 94
--- NOTE | 2023-04-20 08:34 | CT_ITS ---
WS: [id number] CT ABDOMEN AND PELVIS WITH CONTRAST HISTORY: Drainable abscess? TECHNIQUE: Imaging performed of the abdomen and pelvis with IV contrast. Single phase imaging of the abdomen. Coronal and sagittal reformats are submitted. All CT scans at [facility] use at [facility] [facility] one of these dose optimization techniques: automated exposure control; mA and/or kV adjustment per patient size (includes targeted exams where dose is matched to clinical indication); or iterative re construction. IV CONTRAST: Omnipaque 350; 100 mL IV. Oral contrast: Yes. DLP: 1193.92 mGy.cm COMPARISON: 04/17/2023 Lower thorax: Bibasilar areas of atelectasis at the lung bases. Heart is normal size. No hiatal herni a. Liver/biliary system: Normal size with no intrahepatic dilatation. Gallbladder: Normally distended. There is a small amount of soft tissue stranding adjacent to the gal lbladder which is probably related to the colon inflammation. Pancreas: Normal size pancreas and pancreatic duct. No adjacent inflammation. Spleen: Normal size spleen. No mass or infarct. Adrenal glands: Normal. Right kidney: Normal size kidney. Cortical cyst superior pole. Left kidney: Normal size kidney. Several cortical cysts. No obstruction or solid mass. Aorta: Normal. Lymphadenopathy: None. Free fluid: Scattered edema and pockets of fluid throughout the peritoneal cavity. GI tract: Nondistended stomach. No small bowel obstruction. There is moderate submucosal thickening w ith edema involving the ascending colon. There is also very mild enhancement of the appendix. There i s omental thickening and enhancement noted bilaterally. Numerous fluid collections are noted throughout the peritoneal cavity. There is a large collection in the central pelvis abutting the sigmoid which is irregular shaped measuring 6.5 x 9.8 cm. There is a n additional predominantly air-filled collection more anteriorly in the pelvis measuring 5.9 x 3.7 cm . This abuts the sigmoid colon. Additional well circumscribed fluid collection in the central mesente ry measures 5.2 x 3.7 cm. There are additional multiple smaller pockets throughout the mesentery. The re are small foci of free air which are external to the lumen. There is an additional fluid collectio n the RIGHT lower quadrant which is probably connected to the cecum. Abdominal wall: Ventral abdominal wall hernia. There is soft tissue edema and stranding throughout th e abdominal wall. Pelvis: Urinary bladder is well distended. One of the abscess cavities abuts the urinary bladder. Bones: Degenerative changes throughout the spine. CT/CT abdomen pelvis w con* [id number] IMPRESSION: 1. Progression of multifocal abscess collections and fluid collections through out the peritoneal cavity. Largest collections contain air-fluid levels consist ent with abscesses in the pelvis. The largest measures 6.5 x 9.8 cm and contact s the sigmoid colon. 2. Etiology of these collections may be diverticular disease but there is very little diverticular burden. Possibility of an underlying neoplasm or ischemic event should be considered also. 3. Omental thickening and stranding noted bilaterally is probably infectious a nd not neoplastic. 4. Several foci of free air in the pelvis. 5. New submucosal edema in the ascending colon.
[2023-04-20] MEDS: iohexol 350 mg/mL 500 mL Btl (per mL) PO (11:05)
[2023-04-20] MEDS: iohexol 350 mg/mL 500 mL Btl (per mL) IV (11:32)
--- NOTE | 2023-04-20 13:40 | PM.PN ---
Subjective Subjective: Patient seen and examined. Still has not passed well last. No nausea or vomiting Vitals/I&O/Wt Last Vital Signs Temp 98.6 F 04/21/23 11:41 Pulse 89 04/21/23 11:41 Resp 18 04/21/23 11:41 BP 145/89 04/21/23 11:41 Pulse Ox 97 04/21/23 11:41 O2 Del Method Room Air 04/21/23 04:00 04/20/23 04/21/23 04/21/23 22:59 06:59 14:59 Intake Total 689.0909 / 2754.0909 1290 / 4044.0909 Balance 689.0909 / 2754.0909 1290 / 4044.0909 Physical Exam Narrative: General: No acute distress, awake alert and oriented x3 Abdomen: Soft, nondistended, mild left lower quadrant tenderness, no guarding rebound or masses Data 04/23/23 05:05 04/23/23 05:05 A&P Assessment and plan (1) Diverticulitis of large intestine with complication: Plan IV antibiotics IV fluids Pain control Full liquid diet Repeat labs in the morning IR drains ordered If he passes conservative management, he will need a colonoscopy in 4 to 6 weeks followed by elective sigmoidectomy Attestations Medical Necessity Statement*: Patient requires at least 2 more nights in the hospital for antibiotics and IR drains for perforated diverticulitis Coding Level of Care Code Acute Code for [facility] Diagnoses Diverticulitis of large intestine with complication K57.32
[2023-04-20] MEDS: pantoprazole 40 mg SDV IVP (13:54)
[2023-04-20] MEDS: magnesium sulfate premix 2 GM/50 ML PIGGYBACK IV (13:55)
[2023-04-20] MEDS: potassium phosphate (mEq K) 40 MEQ in sodium chloride 0.9% (100 ml) 100 ML 27.25 MEQ IV (13:56)
[2023-04-20] MEDS: sodium chloride 0.9% 1,000 ML 75 ML IV (13:57)
[2023-04-20 15:15] VITALS: BP 145/97; PULSE 91; RESP 18; TEMP 36.8; O2SAT 95
[2023-04-20 19:46] VITALS: BP 143/95; PULSE 102; RESP 18; TEMP 36.4; O2SAT 91
[2023-04-21] VITALS (7 sets, daily range): BP systolic 132–148; BP diastolic 87–101; PULSE 88–100; RESP 15–26; TEMP 36.7–37.2; O2SAT 95–97
[2023-04-21] MEDS: ondansetron 2 mg/ML SDV 2 mL 4 MG IVP (02:42)
[2023-04-21] MEDS: sodium chloride 0.9% 1,000 ML 75 ML IV ×3 (03:34→22:19)
[2023-04-21] MEDS: piperacillin-tazobactam 3.375 GM in sodium chloride 0.9% (plus) 50 ML IV ×3 (05:50→22:48)
--- NOTE | 2023-04-21 09:35 | PM.PN ---
Subjective Subjective: Patient seen and examined. No flatus or bowel movement. IR drains are ordered Vitals/I&O/Wt Last Vital Signs Temp 98.3 F 04/23/23 08:00 Pulse 103 H 04/23/23 08:00 Resp 16 04/23/23 08:00 BP 121/77 04/23/23 08:00 Pulse Ox 94 04/23/23 08:00 O2 Del Method Room Air 04/23/23 08:00 O2 Flow Rate 6 04/22/23 15:50 04/22/23 04/23/23 04/23/23 22:59 06:59 14:59 Intake Total 987.5 / 2147.4 1592.5 / 3739.9 480 / 480 Output Total 875 / 875 Balance 987.5 / 2147.4 717.5 / 2864.9 480 / 480 Physical Exam Narrative: General: No acute distress, awake alert and oriented x3 Abdomen: Soft, nondistended, mild left lower quadrant tenderness, no guarding rebound or masses Urinary Catheter Management: Patton: Cath Placed During This Visit: yes, but has since been removed by the nurse Urinary Catheter Date of Insertion: 04/22/23 Urinary Catheter Time of Insertion: 13:30 Date Urinary Catheter Removed: 04/22/23 Time Urinary Catheter Discontinued: 15:35 Data 04/23/23 05:05 04/23/23 05:05 Micro: Microbiology 04/17/23 06:30 Blood Culture - Final Blood NO GROWTH AFTER 5 DAYS 04/17/23 06:30 Blood Culture - Final Blood NO GROWTH AFTER 5 DAYS A&P Assessment and plan (1) Diverticulitis of large intestine with complication: Plan IV antibiotics IV fluids Pain control Full liquid diet Repeat labs in the morning IR drains tomorrow If he passes conservative management, he will need a colonoscopy in 4 to 6 weeks followed by elective sigmoidectomy Attestations Medical Necessity Statement*: Patient requires at least 2 more nights in the hospital for antibiotics and IR drains for perforated diverticulitis Coding Level of Care Code Acute Code for [facility] Diagnoses Diverticulitis of large intestine with complication K57.32
[2023-04-21 10:18] LABS: Basophils # 0.1 10^3/uL (0.0-0.1); Basophils % 0.6 %; Eosinophils % 0.1 %; Hematocrit 36.7 % (42.0-52.0); Hemoglobin 11.9 g/dL (11.7-16.6); Lymphocytes # 1.1 10^3/uL (0.8-4.8); Lymphocytes % 6.6 %; Mean Corpuscular HGB Conc 32.4 g/dL (30.0-36.0); Mean Corpuscular Hemoglobin 31.9 pg (28.0-34.0); Mean Corpuscular Volume 98.4 fl (80-94); Mean Platelet Volume 10.3 fL (7.4-10.4); Monocytes # 1.8 10^3/uL (0.2-0.9); Monocytes % 10.5 %; Neutrophils # 12.82 10^3/uL (1.8-7.7); Nucleated Red Blood Cells % 0.1 %; Platelet Count 333 10^3/cmm (130-400); Red Blood Count 3.73 10^6/uL (4.1-5.3); White Blood Count 16.9 10^3/uL (4.0-10.0)
[2023-04-21 10:35] LABS: Fibrinogen 759 mg/dL (174-498); INR 1.12 (0.8-1.2); Partial Thromboplastin Time 22.3 SECONDS (23.9-36.7)
[2023-04-21 10:36] LABS: Platelet Count 304 10^3/cmm (130-400)
[2023-04-21 10:38] LABS: Anion Gap 15.1 (5-19); Blood Urea Nitrogen 9 mg/dL (6-20); Calcium 8.2 mg/dL (8.5-10.5); Carbon Dioxide 25 mmol/L (22-29); Chloride 98 mmol/L (98-107); Glomerular Filtration Rate 185.1 mL/min (90-130); Glucose 83 mg/dL (65-115); Magnesium 1.9 mg/dL (1.7-2.3); Osmolality Calculated 278 mOsm/kg (285-295); Phosphorus 2.9 mg/dL (2.5-4.5); Potassium 3.1 mmol/L (3.5-5.1); Sodium 135 mmol/L (136-145)
[2023-04-21 11:06] LABS: Slide Review Slide Review Perform
[2023-04-21] MEDS: potassium chloride premix 100 ML 25 MEQ IV ×2 (15:23→22:48)
[2023-04-21] MEDS: pantoprazole 40 mg SDV IVP (15:24)
[2023-04-21] MEDS: magnesium sulfate premix 2 GM/50 ML PIGGYBACK IV (15:25)
[2023-04-22] VITALS (12 sets, daily range): BP systolic 122–161; BP diastolic 81–100; PULSE 87–97; RESP 14–20; TEMP 36.3–38.2; O2SAT 91–100
--- NOTE | 2023-04-22 | CT_ITS ---
WS: [id number] PELVIC ABDOMINAL ABSCESS DRAIN PLACEMENTS AND ASPIRATION CLINICAL INFORMATION: ABSCESS DRAIN PLACEMENT COMPARISON: CT April 20, 2023 DLP: 4169.69 TECHNIQUE: The procedure including risk, benefits, and complications were discussed with the patient who agreed to proceed. Using sterile technique, the patient was prepped and draped in the usual steri le fashion. Timeout was performed. Patient was positioned prone and CT images were obtained through the abdomen and pelvis. The largest abscess in the pelvis was selected. After 1% lidocaine using fluoroscopic guidance, a 19-gauge coaxi al needle was advanced into the abscess. Approximately 10 cc of purulent material was aspirated. in dl Seldinger technique, and fluoroscopic guidance, a 10 [place]e pigtail catheter was placed in the absc ess cavity and secured in place. The RIGHT lower abdominal fluid collection was selected. A 19-gauge coaxial needle was introduced int o the collection with approximately 100 cc purulent material aspirated with significant improvement a nd near resolution of the collection prior to drainage stopping. Next the lower abdominal LEFT pericentral abscess collection was selected. A 19-gauge coaxial needle was introduced into the collection. Purulent material was returned. Using Seldinger technique, a 10 F rench pigtail catheter was placed into the abscess cavity. Catheter was secured. Next the RIGHT lower abdominal mesenteric abscess collection was selected and penetrated with 18-gaug e coaxial needle. Approximately 50 to 60 cc of purulent material was aspirated with near resolution o f the fluid collection. Post procedure CT images demonstrate drains in good position. No immediate complications. Anesthesia was present for sedation. CT/CT drain retroperitoneal [id number] IMPRESSION: 1. 10 [place]e pigtail catheters were placed into the pelvic and LEFT pericentra l abdominal abscess cavities. Recommend catheter flushing 2 times a day with 5- 10cc Normal saline. 2. Successful aspiration of a RIGHT lower pelvic and a RIGHT pericentral abdom inal abscess cavity with over 150 cc purulent material aspirated from the absce ss cavities. 3. Fluid was sent for cultures. 4. No immediate complications.
--- NOTE | 2023-04-22 | CT_ITS ---
WS: [id number] PELVIC ABDOMINAL ABSCESS DRAIN PLACEMENTS AND ASPIRATION CLINICAL INFORMATION: ABSCESS DRAIN PLACEMENT COMPARISON: CT April 20, 2023 DLP: 4169.69 TECHNIQUE: The procedure including risk, benefits, and complications were discussed with the patient who agreed to proceed. Using sterile technique, the patient was prepped and draped in the usual steri le fashion. Timeout was performed. Patient was positioned prone and CT images were obtained through the abdomen and pelvis. The largest abscess in the pelvis was selected. After 1% lidocaine using fluoroscopic guidance, a 19-gauge coaxi al needle was advanced into the abscess. Approximately 10 cc of purulent material was aspirated. in dl Seldinger technique, and fluoroscopic guidance, a 10 [place]er pigtail catheter was placed in the absc ess cavity and secured in place. The RIGHT lower abdominal fluid collection was selected. A 19-gauge coaxial needle was introduced int o the collection with approximately 100 cc purulent material aspirated with significant improvement a nd near resolution of the collection prior to drainage stopping. Next the lower abdominal LEFT pericentral abscess collection was selected. A 19-gauge coaxial needle was introduced into the collection. Purulent material was returned. Using Seldinger technique, a 10 F rench pigtail catheter was placed into the abscess cavity. Catheter was secured. Next the RIGHT lower abdominal mesenteric abscess collection was selected and penetrated with 18-gaug e coaxial needle. Approximately 50 to 60 cc of purulent material was aspirated with near resolution o f the fluid collection. Post procedure CT images demonstrate drains in good position. No immediate complications. Anesthesia was present for sedation. CT/CT guided aspiration [id number] IMPRESSION: 1. 10 [place]er pigtail catheters were placed into the pelvic and LEFT pericentra l abdominal abscess cavities. Recommend catheter flushing 2 times a day with 5- 10cc Normal saline. 2. Successful aspiration of a RIGHT lower pelvic and a RIGHT pericentral abdom inal abscess cavity with over 150 cc purulent material aspirated from the absce ss cavities. 3. Fluid was sent for cultures. 4. No immediate complications.
[2023-04-22 04:49] LABS: Hematocrit 35.1 % (42.0-52.0); Mean Corpuscular HGB Conc 34.2 g/dL (30.0-36.0); Mean Corpuscular Hemoglobin 31.4 pg (28.0-34.0); Mean Corpuscular Volume 91.9 fl (80-94); Mean Platelet Volume 9.4 fL (7.4-10.4); Platelet Count 407 10^3/cmm (130-400); Red Blood Count 3.82 10^6/uL (4.1-5.3); Red Cell Distribution Width 14.6 % (12.1-15.1); White Blood Count 17.3 10^3/uL (4.0-10.0)
[2023-04-22 05:08] LABS: Anion Gap 13.8 (5-19); Blood Urea Nitrogen 9 mg/dL (6-20); Calcium 8.2 mg/dL (8.5-10.5); Carbon Dioxide 26 mmol/L (22-29); Chloride 102 mmol/L (98-107); Glomerular Filtration Rate 239.5 mL/min (90-130); Glucose 95 mg/dL (65-115); Osmolality Calculated 284 mOsm/kg (285-295); Phosphorus 2.4 mg/dL (2.5-4.5); Potassium 3.8 mmol/L (3.5-5.1); Sodium 138 mmol/L (136-145)
[2023-04-22 05:22] LABS: Slide Review Slide Review Perform
[2023-04-22 05:23] LABS: Absolute Segmented Neutrophil 12.6 10/cmm (1.6-7.1); Segmented Neutrophils 73 %; Total Cells Counted 100 (0-100)
[2023-04-22 05:24] LABS: Absolute Eosinophils 0.1 10^3/cmm (0.0-0.7); Absolute Neutrophil 12.6 10^3/cmm (1.4-6.5); Eosinophils 1 %; Lymphocytes 11 %; Monocytes Absolute 1.6 10^3/cmm (0.1-0.6); Platelet Estimate Increased (Normal)
[2023-04-22] MEDS: sodium chloride 0.9% 1,000 ML 150 ML IV ×3 (05:25→23:35)
[2023-04-22] MEDS: piperacillin-tazobactam 3.375 GM in sodium chloride 0.9% (plus) 50 ML IV ×2 (05:32→16:35)
[2023-04-22] MEDS: potassium phosphate (mEq K) 40 MEQ in sodium chloride 0.9% (100 ml) 100 ML 27.25 MEQ IV (08:00)
--- NOTE | 2023-04-22 10:35 | PM.PN ---
Subjective Subjective: Patient seen and examined. Passing flatus. He is going for IR drains later today Vitals/I&O/Wt Last Vital Signs Temp 98.3 F 04/23/23 08:00 Pulse 103 H 04/23/23 08:00 Resp 16 04/23/23 08:00 BP 121/77 04/23/23 08:00 Pulse Ox 94 04/23/23 08:00 O2 Del Method Room Air 04/23/23 08:00 O2 Flow Rate 6 04/22/23 15:50 04/22/23 04/23/23 04/23/23 22:59 06:59 14:59 Intake Total 987.5 / 2147.4 1592.5 / 3739.9 480 / 480 Output Total 875 / 875 Balance 987.5 / 2147.4 717.5 / 2864.9 480 / 480 Physical Exam Narrative: General: No acute distress, awake alert and oriented x3 Abdomen: Soft, nondistended, minimal left lower quadrant tenderness, no guarding rebound or masses Urinary Catheter Management: Patton: Cath Placed During This Visit: yes, but has since been removed by the nurse Urinary Catheter Date of Insertion: 04/22/23 Urinary Catheter Time of Insertion: 13:30 Date Urinary Catheter Removed: 04/22/23 Time Urinary Catheter Discontinued: 15:35 Data 04/23/23 05:05 04/23/23 05:05 Micro: Microbiology 04/17/23 06:30 Blood Culture - Final Blood NO GROWTH AFTER 5 DAYS 04/17/23 06:30 Blood Culture - Final Blood NO GROWTH AFTER 5 DAYS A&P Assessment and plan (1) Diverticulitis of large intestine with complication: Plan IV antibiotics IV fluids Pain control NPO Repeat labs in the morning IR drains later today If he passes conservative management, he will need a colonoscopy in 4 to 6 weeks followed by elective sigmoidectomy Attestations Medical Necessity Statement*: Patient requires at least 2 more nights in the hospital for antibiotics and IR drains for perforated diverticulitis Coding Level of Care Code Acute Code for Chg Fwd Diagnoses Diverticulitis of large intestine with complication K57.32
[2023-04-22] MEDS: HYDROcodone-acetaminophen 7.5-325 mg Tablet 1 TAB PO ×3 (10:49→23:45)
--- NOTE | 2023-04-22 14:42 | PC.NURSE ---
1250-Patient brought down to CT via gurney. Anesthesia already there. Time was taken to find everything that was needed, as the CT department doesn't have many supplies and we weren't sure what all was needed. It took time to get everything anesthesia needed to do the case. 1330 Radiologist decided the patient needed a gil catheter placed due to bladder being full despite the patient urinating prior to being brought to CT, and one of the abscesses being on top of the bladder. 16F gil catheter placed without difficulty.
[2023-04-22] MEDS: enoxaparin 40 mg/0.4 mL Syringe SUBCUT (16:34)
[2023-04-22] MEDS: pantoprazole 40 mg SDV IVP (16:35)
[2023-04-23] MEDS: piperacillin-tazobactam 3.375 GM in sodium chloride 0.9% (plus) 50 ML IV ×3 (01:29→17:11)
[2023-04-23 04:00] VITALS: BP 151/82; PULSE 92; RESP 16; TEMP 37.1; O2SAT 94
[2023-04-23 05:29] LABS: Basophils # 0.1 10^3/uL (0.0-0.1); Basophils % 0.3 %; Eosinophils % 0.3 %; Hematocrit 36.5 % (42.0-52.0); Hemoglobin 12.2 g/dL (11.7-16.6); Lymphocytes # 1.3 10^3/uL (0.8-4.8); Lymphocytes % 8.8 %; Mean Corpuscular HGB Conc 33.4 g/dL (30.0-36.0); Mean Corpuscular Hemoglobin 31.7 pg (28.0-34.0); Mean Corpuscular Volume 94.8 fl (80-94); Mean Platelet Volume 9.1 fL (7.4-10.4); Monocytes # 1.2 10^3/uL (0.2-0.9); Monocytes % 8.4 %; Neutrophils # 11.21 10^3/uL (1.8-7.7); Neutrophils % 77.4 %; Nucleated Red Blood Cells % 0 %; Platelet Count 364 10^3/cmm (130-400); Red Blood Count 3.85 10^6/uL (4.1-5.3); White Blood Count 14.5 10^3/uL (4.0-10.0)
[2023-04-23 05:53] LABS: Anion Gap 11.6 (5-19); Blood Urea Nitrogen 7 mg/dL (6-20); Carbon Dioxide 28 mmol/L (22-29); Chloride 100 mmol/L (98-107); Glomerular Filtration Rate 185.1 mL/min (90-130); Glucose 90 mg/dL (65-115); Magnesium 1.9 mg/dL (1.7-2.3); Osmolality Calculated 280 mOsm/kg (285-295); Phosphorus 3.2 mg/dL (2.5-4.5); Potassium 3.6 mmol/L (3.5-5.1); Sodium 136 mmol/L (136-145)
[2023-04-23] MEDS: sodium chloride 0.9% 1,000 ML 150 ML IV ×2 (06:20→16:18)
[2023-04-23 08:00] VITALS: BP 121/77; PULSE 103; RESP 16; TEMP 36.8; O2SAT 94
[2023-04-23] MEDS: HYDROcodone-acetaminophen 7.5-325 mg Tablet 1 TAB PO ×3 (09:56→23:41)
--- NOTE | 2023-04-23 11:35 | PC.NURSE ---
Dr. Leo gave verbal order to turn patients fluids down to 75 ml/hr and to flush drains BID.
--- NOTE | 2023-04-23 11:39 | PM.PN ---
Subjective Subjective: Patient seen and examined. Drains were placed yesterday with feculent material coming out. Cultures pending. No nausea or vomiting. Pain controlled Vitals/I&O/Wt Last Vital Signs Temp 98.3 F 04/23/23 08:00 Pulse 103 H 04/23/23 08:00 Resp 16 04/23/23 08:00 BP 121/77 04/23/23 08:00 Pulse Ox 94 04/23/23 08:00 O2 Del Method Room Air 04/23/23 08:00 O2 Flow Rate 6 04/22/23 15:50 04/22/23 04/23/23 04/23/23 22:59 06:59 14:59 Intake Total 987.5 / 2147.4 1592.5 / 3739.9 480 / 480 Output Total 875 / 875 Balance 987.5 / 2147.4 717.5 / 2864.9 480 / 480 Physical Exam Narrative: General: No acute distress, awake alert and oriented x3 Abdomen: Soft, nondistended, minimal left lower quadrant tenderness, no guarding rebound or masses Drains are feculent Urinary Catheter Management: Patton: Cath Placed During This Visit: yes, but has since been removed by the nurse Urinary Catheter Date of Insertion: 04/22/23 Urinary Catheter Time of Insertion: 13:30 Date Urinary Catheter Removed: 04/22/23 Time Urinary Catheter Discontinued: 15:35 Data 04/23/23 05:05 04/23/23 05:05 A&P Assessment and plan (1) Diverticulitis of large intestine with complication: Plan IV antibiotics IV fluids Pain control Soft diet Repeat labs in the morning await culture results Flush drains with 5 cc NS bid If he passes conservative management, he will need a colonoscopy in 4 to 6 weeks followed by elective sigmoidectomy Attestations Medical Necessity Statement*: Patient requires at least 2 more nights in the hospital for antibiotics and IR drains for perforated diverticulitis Coding Level of Care Code Acute Code for Chg Fwd Diagnoses Diverticulitis of large intestine with complication K57.32
[2023-04-23 12:00] VITALS: BP 121/71; PULSE 75; RESP 18; TEMP 36.8
[2023-04-23 16:00] VITALS: BP 115/77; PULSE 91; RESP 17; TEMP 37.2; O2SAT 97
[2023-04-23] MEDS: enoxaparin 40 mg/0.4 mL Syringe SUBCUT (16:17)
[2023-04-23] MEDS: pantoprazole 40 mg SDV IVP (16:18)
--- NOTE | 2023-04-23 17:42 | P.PN_ITS ---
Subjective Subjective: Patient feels pain is better and less fever Medications: Reviewed: Yes Vitals/I&O/Wt Last Vital Signs Temp 99 F 04/23/23 16:00 Pulse 91 04/23/23 16:00 Resp 17 04/23/23 16:00 BP 115/77 04/23/23 16:00 Pulse Ox 97 04/23/23 16:00 O2 Del Method Room Air 04/23/23 08:00 O2 Flow Rate 6 04/22/23 15:50 04/23/23 04/23/23 04/23/23 06:59 14:59 22:59 Intake Total 1592.5 / 3739.9 1720 / 1720 50 / 1770 Output Total 875 / 875 75 / 75 Balance 717.5 / 2864.9 1720 / 1720 -25 / 1695 Physical Exam Narrative: Patient is a well developed well nourished and in NAD and is afrebrile currently with vitals stable and is answering questions appropriately with normal affect and is alert and oriented x3 HEENT: normocephalic with normal external ears and nonicteric, oral mucosa moist and dentition normal for age, trachea midline with no large masses visualized Heart: RRR, no gallops murmurs or rubs, normal PMI with no thrills Lungs: normal excursions, no loud audible wheezing, no sub cutaneous emphysema Abdomen: nondistended, no gross hepatosplenomegaly, no masses, no rigidity or rebound, no loud borborygmi Neuro: nonfocal, HART, grossly normal sensation Musculoskeletal: good muscle tone, no fasciculations, normal gait Skin: pink warm and dry with no rashes or ecchymosis Vascular: good radial pulses, no ulcerations, less than 2 second capillary refill in hand : deferred Urinary Catheter Management: Patton: Cath Placed During This Visit: yes, but has since been removed by the nurse Urinary Catheter Date of Insertion: 04/22/23 Urinary Catheter Time of Insertion: 13:30 Date Urinary Catheter Removed: 04/22/23 Time Urinary Catheter Discontinued: 15:35 Data 04/23/23 05:05 04/23/23 05:05 Other Labs: Abnormal lab results 04/23/23 04/23/23 Range/Units 05:05 05:05 WBC 14.5 H (4.0-10.0) 10^3/uL RBC 3.85 L (4.1-5.3) 10^6/uL Hct 36.5 L (42.0-52.0) % MCV 94.8 H (80-94) fl Neut # (Auto) 11.21 H (1.8-7.7) 10^3/uL Eagle # (Auto) 1.2 H (0.2-0.9) 10^3/uL Creatinine 0.5 L (0.7-1.2) mg/dL GFR Calculation 185.1 H (90-130) mL/min Calculated Osmolality 280 L (285-295) mOsm/kg Calcium 8.0 L (8.5-10.5) mg/dL Micro: Microbiology 04/22/23 16:41 Gram Stain - Final Other Source Abscess Culture - Preliminary Other Source ? Procedure/Result Gram Stain - Final Abscess Culture - Preliminary 04/17/23 06:30 Micro Blood Specimen Complete Source Blood ? Procedure/Result Blood Culture - Final ???NO GROWTH AFTER 5 DAYS 04/17/23 06:30 Micro Blood Specimen Complete Source Blood ? Procedure/Result Blood Culture - Final A&P Assessment and plan (1) Diverticular disease of intestine with perforation and abscess: Continue antibiotics and continue drain care of diverticular abscesses. WBC coming down and fever. On liquid diet and passing flatus. He feels better. Abscess culture no growth so far. Plan Antibiotics and drainage. Drain to be removed by IR probably as outpatient. Patient being taught drain care. He seems to tolerate liquid diet and will continue and advance once WBC normalizes. He will likely need a couple weeks total of antibiotics and likely will send home on oral antibiotics. Home once tolerating diet, normalized WBC and not fever and no significant pain. Attestations Medical Necessity Statement*: Patient needs continued IV antibiotics and monitoring for perforated diverticulitis with abscesses with percutaneous drainage. Coding Level of Care Code 44867 Diagnoses Diverticular disease of intestine with perforation and abscess K57.80
[2023-04-23 20:00] VITALS: BP 119/79; PULSE 100; RESP 18; TEMP 36.4; O2SAT 98
[2023-04-24] VITALS (7 sets, daily range): BP systolic 102–143; BP diastolic 81–89; PULSE 93–107; RESP 16–18; TEMP 36.8–37.4; O2SAT 95–97
[2023-04-24] MEDS: piperacillin-tazobactam 3.375 GM in sodium chloride 0.9% (plus) 50 ML IV ×3 (02:15→17:15)
[2023-04-24] MEDS: sodium chloride 0.9% 1,000 ML 150 ML IV (04:15)
[2023-04-24 05:25] LABS: Basophils # 0.1 10^3/uL (0.0-0.1); Basophils % 0.3 %; Eosinophils # 0.1 10^3/uL (0.0-0.8); Eosinophils % 0.5 %; Hematocrit 35.7 % (42.0-52.0); Hemoglobin 12.2 g/dL (11.7-16.6); Lymphocytes # 1.5 10^3/uL (0.8-4.8); Lymphocytes % 6.7 %; Mean Corpuscular HGB Conc 34.2 g/dL (30.0-36.0); Mean Corpuscular Hemoglobin 31.9 pg (28.0-34.0); Mean Corpuscular Volume 93.5 fl (80-94); Monocytes # 1.5 10^3/uL (0.2-0.9); Monocytes % 6.7 %; Neutrophils # 17.98 10^3/uL (1.8-7.7); Neutrophils % 82.2 %; Nucleated Red Blood Cells % 0 %; Platelet Count 440 10^3/cmm (130-400); Red Blood Count 3.82 10^6/uL (4.1-5.3); Red Cell Distribution Width 14.8 % (12.1-15.1); White Blood Count 21.9 10^3/uL (4.0-10.0)
[2023-04-24 05:45] LABS: Anion Gap 13.6 (5-19); Blood Urea Nitrogen 6 mg/dL (6-20); Calcium 8.1 mg/dL (8.5-10.5); Carbon Dioxide 28 mmol/L (22-29); Chloride 100 mmol/L (98-107); Glucose 98 mg/dL (65-115); Magnesium 1.9 mg/dL (1.7-2.3); Osmolality Calculated 284 mOsm/kg (285-295); Phosphorus 3.4 mg/dL (2.5-4.5); Potassium 3.6 mmol/L (3.5-5.1); Sodium 138 mmol/L (136-145)
[2023-04-24] MEDS: HYDROcodone-acetaminophen 7.5-325 mg Tablet 1 TAB PO ×3 (06:43→21:28)
[2023-04-24] MEDS: vancomycin 1,500 MG/300 ML PIGGYBACK 200 MG IV ×2 (12:14→19:50)
--- NOTE | 2023-04-24 13:59 | PM.PN ---
Subjective Subjective: Patient feels better and had BM yesterday Vitals/I&O/Wt Last Vital Signs Temp 98.2 F 04/24/23 12:00 Pulse 102 H 04/24/23 12:00 Resp 17 04/24/23 12:00 BP 102/81 04/24/23 12:00 Pulse Ox 97 04/24/23 12:00 O2 Del Method Room Air 04/24/23 04:00 O2 Flow Rate 6 04/22/23 15:50 04/23/23 04/24/23 04/24/23 22:59 06:59 14:59 Intake Total 1600 / 3320 950 / 4270 360 / 360 Output Total 75 / 75 2925 / 3000 Balance 1525 / 3245 -1975 / 1270 360 / 360 Physical Exam Narrative: Patient is a well developed well nourished and in NAD and is afebrile with vitals stable and is answering questions appropriately with a normal affect and is alert and oriented x3 HEENT: normocephalic with normal external ears and nonicteric, oral mucosa moist and dentition normal for age, trachea midline with no large masses visualized Heart: RRR, no gallops murmurs or rubs, normal PMI with no thrills Lungs: normal excursions, no loud audible wheezing, no subcutaneous emphysema Abdomen: nondistended, no gross hepatosplenomegaly, no masses, no rigidity or rebound, no loud borborygmi Neuro: nonfocal, HART, grossly normal sensation Musculoskeletal: good muscle tone, no fasciculations, normal gait Skin: pink warm and dry with no rashes or ecchymosis Vascular: good radial pulses, no ulceration, less than 2 second capillary refill in hand : deferred Urinary Catheter Management: Patton: Cath Placed During This Visit: yes, but has since been removed by the nurse Urinary Catheter Date of Insertion: 04/22/23 Urinary Catheter Time of Insertion: 13:30 Date Urinary Catheter Removed: 04/22/23 Time Urinary Catheter Discontinued: 15:35 Data 04/24/23 04:55 04/24/23 04:55 Micro: Microbiology 04/22/23 16:41 Gram Stain - Final Other Source Abscess Culture - Preliminary Gram Negative Rods Coag positive Staphylococcus A&P Assessment and plan (1) Diverticular disease of intestine with perforation and abscess: Patient feels better with no high grade fever. Culture is growing staph epi and vanco was added to antibiotics. WBC is elevated and if it does not start to come down consider repeat CT and possible more drains placements if needed. Stay on liquid diet. Attestations Medical Necessity Statement*: Patient with elevation fo wbc ad change in antibiotics requiring hospitalization Coding Level of Care Code 01776 Diagnoses Diverticular disease of intestine with perforation and abscess K57.80
[2023-04-24] MEDS: enoxaparin 40 mg/0.4 mL Syringe SUBCUT (16:25)
[2023-04-24] MEDS: pantoprazole 40 mg SDV IVP (16:27)
[2023-04-24] MEDS: sodium chloride 0.9% 1,000 ML 75 ML IV (17:19)
[2023-04-25] MEDS: piperacillin-tazobactam 3.375 GM in sodium chloride 0.9% (plus) 50 ML IV ×3 (02:25→17:23)
[2023-04-25] MEDS: vancomycin 1,500 MG/300 ML PIGGYBACK 200 MG IV ×3 (03:56→18:56)
[2023-04-25 04:13] VITALS: BP 130/85; PULSE 89; RESP 19; TEMP 36.9; O2SAT 97
[2023-04-25] MEDS: sodium chloride 0.9% 1,000 ML 75 ML IV ×2 (05:59→17:25)
[2023-04-25] MEDS: HYDROcodone-acetaminophen 7.5-325 mg Tablet 1 TAB PO ×3 (06:08→20:21)
[2023-04-25 07:07] LABS: Basophils # 0.1 10^3/uL (0.0-0.1); Basophils % 0.4 %; Eosinophils # 0.2 10^3/uL (0.0-0.8); Eosinophils % 0.7 %; Hematocrit 36.1 % (42.0-52.0); Hemoglobin 11.7 g/dL (11.7-16.6); Lymphocytes # 1.4 10^3/uL (0.8-4.8); Lymphocytes % 6.6 %; Mean Corpuscular HGB Conc 32.4 g/dL (30.0-36.0); Mean Corpuscular Hemoglobin 31.4 pg (28.0-34.0); Mean Corpuscular Volume 96.8 fl (80-94); Mean Platelet Volume 8.9 fL (7.4-10.4); Monocytes # 1.1 10^3/uL (0.2-0.9); Monocytes % 5.1 %; Neutrophils # 18.29 10^3/uL (1.8-7.7); Neutrophils % 85.2 %; Nucleated Red Blood Cells % 0 %; Platelet Count 420 10^3/cmm (130-400); Red Blood Count 3.73 10^6/uL (4.1-5.3); Red Cell Distribution Width 15.1 % (12.1-15.1); White Blood Count 21.5 10^3/uL (4.0-10.0)
[2023-04-25 08:00] VITALS: BP 131/87; PULSE 92; RESP 17; TEMP 36.3; O2SAT 96
[2023-04-25 11:00] LABS: Vancomycin Trough 13.8 ug/mL (10-15)
[2023-04-25 12:00] VITALS: BP 152/97; PULSE 104; RESP 18; TEMP 36.4; O2SAT 97
[2023-04-25] MEDS: enoxaparin 40 mg/0.4 mL Syringe SUBCUT (14:23)
[2023-04-25 16:00] VITALS: BP 148/92; PULSE 95; RESP 18; TEMP 36.4; O2SAT 98
[2023-04-25] MEDS: pantoprazole 40 mg SDV IVP (17:17)
[2023-04-25 20:24] VITALS: BP 128/82; PULSE 100; RESP 19; TEMP 36.9; O2SAT 97
[2023-04-25 23:12] VITALS: BP 127/78; PULSE 101; RESP 19; TEMP 37.2; O2SAT 97
[2023-04-26] MEDS: piperacillin-tazobactam 3.375 GM in sodium chloride 0.9% (plus) 50 ML IV ×2 (00:54→08:56)
[2023-04-26 03:19] VITALS: BP 124/84; PULSE 97; RESP 18; TEMP 37.1; O2SAT 99
[2023-04-26] MEDS: vancomycin 1,500 MG/300 ML PIGGYBACK 200 MG IV ×3 (04:15→19:52)
[2023-04-26] MEDS: HYDROcodone-acetaminophen 7.5-325 mg Tablet 1 TAB PO ×3 (07:53→21:24)
[2023-04-26 08:00] VITALS: BP 124/78; PULSE 95; RESP 18; TEMP 37.1; O2SAT 97
[2023-04-26] MEDS: sodium chloride 0.9% 1,000 ML 75 ML IV (09:34)
[2023-04-26 10:11] LABS: Basophils # 0.1 10^3/uL (0.0-0.1); Basophils % 0.2 %; Eosinophils # 0.1 10^3/uL (0.0-0.8); Eosinophils % 0.6 %; Hematocrit 35.4 % (42.0-52.0); Hemoglobin 11.7 g/dL (11.7-16.6); Lymphocytes # 1.3 10^3/uL (0.8-4.8); Lymphocytes % 5.9 %; Mean Corpuscular HGB Conc 33.1 g/dL (30.0-36.0); Mean Corpuscular Volume 96.7 fl (80-94); Mean Platelet Volume 8.8 fL (7.4-10.4); Monocytes # 1.3 10^3/uL (0.2-0.9); Monocytes % 6.1 %; Neutrophils % 85.9 %; Nucleated Red Blood Cells % 0 %; Platelet Count 483 10^3/cmm (130-400); Red Blood Count 3.66 10^6/uL (4.1-5.3); Red Cell Distribution Width 14.8 % (12.1-15.1); White Blood Count 21.7 10^3/uL (4.0-10.0)
[2023-04-26 10:27] LABS: Alanine Aminotransferase 109 U/L (0-41); Albumin Level 2.7 g/dL (3.5-5.2); Alkaline Phosphatase 81 U/L (40-130); Anion Gap 13.6 (5-19); Aspartate Amino Transferase 25 U/L (0-40); Blood Urea Nitrogen 8 mg/dL (6-20); Calcium 8.2 mg/dL (8.5-10.5); Carbon Dioxide 27 mmol/L (22-29); Chloride 98 mmol/L (98-107); Globulin 3.6 g/dL (1.3-4.6); Glucose 114 mg/dL (65-115); Magnesium 1.9 mg/dL (1.7-2.3); Osmolality Calculated 279 mOsm/kg (285-295); Potassium 3.6 mmol/L (3.5-5.1); Sodium 135 mmol/L (136-145); Total Bilirubin 0.5 mg/dL (0.15-1.2); Total Protein 6.3 g/dL (6.6-8.7)
--- NOTE | 2023-04-26 11:04 | PM.PN ---
Subjective Subjective: This is for service date 04/25/23 yesterday. Patient has some lingering abdominal pain Vitals/I&O/Wt Last Vital Signs Temp 98.7 F 04/26/23 08:00 Pulse 95 04/26/23 08:00 Resp 18 04/26/23 08:00 BP 124/78 04/26/23 08:00 Pulse Ox 97 04/26/23 08:00 O2 Del Method Room Air 04/26/23 08:00 O2 Flow Rate 6 04/22/23 15:50 04/25/23 04/26/23 04/26/23 22:59 06:59 14:59 Intake Total 2079.167 / 3388.125 1000 / 4388.125 350 / 350 Output Total 475 / 475 1740 / 2215 Balance 1604.167 / 2913.125 -740 / 2173.125 350 / 350 Physical Exam Narrative: Patient is a well developed well nourished and in NAD and is afebrile with vitals stable and is answering questions appropriately with a normal affect and is alert and oriented x3 HEENT: normocephalic with normal external ears and nonicteric, oral mucosa moist and dentition normal for age, trachea midline with no large masses visualized Heart: RRR, no gallops murmurs or rubs, normal PMI with no thrills Lungs: normal excursions, no loud audible wheezing, no subcutaneous emphysema Abdomen: nondistended, no gross hepatosplenomegaly, no masses, no rigidity or rebound, no loud borborygmi Neuro: nonfocal, HART, grossly normal sensation Musculoskeletal: good muscle tone, no fasciculations, normal gait Skin: pink warm and dry with no rashes or ecchymosis Vascular: good radial pulses, no ulceration, less than 2 second capillary refill in hand : deferred Urinary Catheter Management: Patton: Cath Placed During This Visit: yes, but has since been removed by the nurse Urinary Catheter Date of Insertion: 04/22/23 Urinary Catheter Time of Insertion: 13:30 Date Urinary Catheter Removed: 04/22/23 Time Urinary Catheter Discontinued: 15:35 Data 04/26/23 09:58 04/26/23 09:58 Micro: Microbiology 04/22/23 16:41 Gram Stain - Final Other Source Abscess Culture - Final Escherichia coli 06/30/23 16:28 Body Fluid Culture - Preliminary Other Source Gram Negative Rods A&P Assessment and plan (1) Diverticular disease of intestine with perforation and abscess: Patient WBC came down slightly on vanco. Staph epi growing on original placement of drain. Gram negative ne is growing and possibly E coli and sensitivity are not back as well. Vanco should cover staph epi and enterrococcus. Clinically patient feels better with decrease in HR and temperature curve trends. Keep current antibiotics. Consider getting ID involved and /or repeating CT if WBC continues to go up. Attestations Medical Necessity Statement*: Patient needs to be in hospital for perforated diverticulitis and abscess drainage and being medically managed currently. Coding Level of Care Code 46891 Diagnoses Diverticular disease of intestine with perforation and abscess K57.80
[2023-04-26] MEDS: cefTRIAXone 2,000 MG in sodium chloride 0.9% (plus) 50 ML 100 MG IV (11:06)
[2023-04-26 12:00] VITALS: BP 129/88; PULSE 106; RESP 16; TEMP 36.9; O2SAT 98
[2023-04-26] MEDS: meropenem 1,000 MG in sodium chloride 0.9% (plus) 50 ML 100 MG IV ×2 (14:18→22:21)
[2023-04-26] MEDS: pantoprazole 40 mg SDV IVP (14:30)
[2023-04-26] MEDS: enoxaparin 40 mg/0.4 mL Syringe SUBCUT (15:27)
[2023-04-26 15:47] VITALS: BP 125/77; PULSE 101; RESP 16; TEMP 37.4; O2SAT 99
--- NOTE | 2023-04-26 17:21 | PM.PN ---
Subjective Subjective: No change in abdominal pain. Tolerating solid food Vitals/I&O/Wt Last Vital Signs Temp 99.3 F 04/26/23 15:47 Pulse 101 H 04/26/23 15:47 Resp 16 04/26/23 15:47 BP 125/77 04/26/23 15:47 Pulse Ox 99 04/26/23 15:47 O2 Del Method Room Air 04/26/23 15:47 O2 Flow Rate 0 04/26/23 08:20 04/26/23 04/26/23 04/26/23 06:59 14:59 22:59 Intake Total 1000 / 4388.125 940 / 940 50 / 990 Output Total 1740 / 2215 400 / 400 Balance -740 / 2173.125 540 / 540 50 / 590 Physical Exam Narrative: Patient is a well developed well nourished and in NAD and is afebrile with vitals stable and is answering questions appropriately with a normal affect and is alert and oriented x3 HEENT: normocephalic with normal external ears and nonicteric, oral mucosa moist and dentition normal for age, trachea midline with no large masses visualized Heart: RRR, no gallops murmurs or rubs, normal PMI with no thrills Lungs: normal excursions, no loud audible wheezing, no subcutaneous emphysema Abdomen: nondistended, no gross hepatosplenomegaly, no masses, no rigidity or rebound, no loud borborygmi Neuro: nonfocal, HART, grossly normal sensation Musculoskeletal: good muscle tone, no fasciculations, normal gait Skin: pink warm and dry with no rashes or ecchymosis Vascular: good radial pulses, no ulceration, less than 2 second capillary refill in hand : deferred Urinary Catheter Management: Patton: Cath Placed During This Visit: yes, but has since been removed by the nurse Urinary Catheter Date of Insertion: 04/22/23 Urinary Catheter Time of Insertion: 13:30 Date Urinary Catheter Removed: 04/22/23 Time Urinary Catheter Discontinued: 15:35 Data 04/26/23 09:58 04/26/23 09:58 Micro: Microbiology 04/23/23 16:28 Body Fluid Culture - Final Other Source Escherichia coli 04/22/23 16:41 Gram Stain - Final Other Source Abscess Culture - Final Escherichia coli A&P Assessment and plan (1) Diverticular disease of intestine with perforation and abscess: I talked to ID on phone. She is on vacation and won't be back for a couple of days. E colid is resistant to zosyn patient is on. She recommends meropenem and to continue vancomycin. WBC is about the same but patient has been on inadequate antibiotics for coverage of E coli. Will monitor to see if WBC starts to come down now. If doesn't then consider repeating CT looking for another abscess. Attestations Medical Necessity Statement*: Patient with perforated diverticulitis and abscess and needs to be in hospital for adequate antibiotic coverage. Coding Level of Care Code 54845 Diagnoses Diverticular disease of intestine with perforation and abscess K57.80
[2023-04-26 20:00] VITALS: BP 132/86; PULSE 112; RESP 17; TEMP 37.2; O2SAT 99
[2023-04-26 23:33] VITALS: BP 128/84; PULSE 88; RESP 17; TEMP 37.1; O2SAT 98
[2023-04-27] MEDS: HYDROcodone-acetaminophen 7.5-325 mg Tablet 1 TAB PO ×4 (03:51→22:29)
[2023-04-27] MEDS: vancomycin 1,500 MG/300 ML PIGGYBACK 200 MG IV ×3 (03:51→18:46)
[2023-04-27 04:00] VITALS: BP 124/85; PULSE 91; RESP 16; TEMP 36.8; O2SAT 99
[2023-04-27 05:43] LABS: Basophils # 0.1 10^3/uL (0.0-0.1); Basophils % 0.4 %; Eosinophils # 0.2 10^3/uL (0.0-0.8); Hematocrit 34.4 % (42.0-52.0); Hemoglobin 11.3 g/dL (11.7-16.6); Lymphocytes # 1.5 10^3/uL (0.8-4.8); Mean Corpuscular HGB Conc 32.8 g/dL (30.0-36.0); Mean Corpuscular Hemoglobin 31.6 pg (28.0-34.0); Mean Corpuscular Volume 96.1 fl (80-94); Mean Platelet Volume 9.5 fL (7.4-10.4); Monocytes # 1.4 10^3/uL (0.2-0.9); Monocytes % 8.2 %; Nucleated Red Blood Cells % 0 %; Platelet Count 499 10^3/cmm (130-400); Red Blood Count 3.58 10^6/uL (4.1-5.3); Red Cell Distribution Width 14.7 % (12.1-15.1); White Blood Count 16.9 10^3/uL (4.0-10.0)
[2023-04-27 06:12] LABS: Alanine Aminotransferase 118 U/L (0-41); Albumin Level 2.8 g/dL (3.5-5.2); Alkaline Phosphatase 95 U/L (40-130); Anion Gap 12.8 (5-19); Aspartate Amino Transferase 38 U/L (0-40); Blood Urea Nitrogen 8 mg/dL (6-20); Calcium 8.3 mg/dL (8.5-10.5); Carbon Dioxide 26 mmol/L (22-29); Chloride 102 mmol/L (98-107); Globulin 3.5 g/dL (1.3-4.6); Glomerular Filtration Rate 185.1 mL/min (90-130); Glucose 89 mg/dL (65-115); Osmolality Calculated 282 mOsm/kg (285-295); Potassium 3.8 mmol/L (3.5-5.1); Sodium 137 mmol/L (136-145); Total Bilirubin 0.4 mg/dL (0.15-1.2); Total Protein 6.3 g/dL (6.6-8.7)
[2023-04-27] MEDS: meropenem 1,000 MG in sodium chloride 0.9% (plus) 50 ML 100 MG IV ×3 (06:35→22:19)
--- NOTE | 2023-04-27 06:42 | PC.NURSE ---
Flushed bilateral drains per MD order.
[2023-04-27 08:00] VITALS: BP 131/84; PULSE 100; RESP 17; TEMP 36.1; O2SAT 97
[2023-04-27 10:38] LABS: Vancomycin Trough 17.4 ug/mL (10-15)
[2023-04-27 12:00] VITALS: BP 140/96; PULSE 95; RESP 22; TEMP 36.5; O2SAT 96
[2023-04-27] MEDS: lidocaine 1% INJ 10 mL (per mL) INJECTION ×2 (13:37)
[2023-04-27] MEDS: enoxaparin 40 mg/0.4 mL Syringe SUBCUT (14:48)
--- NOTE | 2023-04-27 15:50 | PM.PN ---
Subjective Subjective: Patient with less pain. Vitals/I&O/Wt Last Vital Signs Temp 97.7 F 04/27/23 12:00 Pulse 95 04/27/23 12:00 Resp 22 H 04/27/23 12:00 BP 140/96 04/27/23 12:00 Pulse Ox 96 04/27/23 12:00 O2 Del Method Room Air 04/27/23 12:00 O2 Flow Rate 0 04/26/23 08:20 04/27/23 04/27/23 04/27/23 06:59 14:59 22:59 Intake Total 1200 / 3288.75 890 / 890 350 / 1240 Output Total 2740 / 3155 600 / 600 Balance -1540 / 133.75 290 / 290 350 / 640 Physical Exam Narrative: Patient is a well developed well nourished and in NAD and is afebrile with vitals stable and is answering questions appropriately with a normal affect and is alert and oriented x3 HEENT: normocephalic with normal external ears and nonicteric, oral mucosa moist and dentition normal for age, trachea midline with no large masses visualized Heart: RRR, no gallops murmurs or rubs, normal PMI with no thrills Lungs: normal excursions, no loud audible wheezing, no subcutaneous emphysema Abdomen: nondistended, no gross hepatosplenomegaly, no masses, no rigidity or rebound, no loud borborygmi Neuro: nonfocal, HART, grossly normal sensation Musculoskeletal: good muscle tone, no fasciculations, normal gait Skin: pink warm and dry with no rashes or ecchymosis Vascular: good radial pulses, no ulceration, less than 2 second capillary refill in hand : deferred Urinary Catheter Management: Patton: Cath Placed During This Visit: yes, but has since been removed by the nurse Urinary Catheter Date of Insertion: 04/22/23 Urinary Catheter Time of Insertion: 13:30 Date Urinary Catheter Removed: 04/22/23 Time Urinary Catheter Discontinued: 15:35 Data 04/27/23 05:09 04/27/23 05:09 Micro: Microbiology 04/23/23 16:28 Body Fluid Culture - Final Other Source Escherichia coli A&P Assessment and plan (1) Diverticular disease of intestine with perforation and abscess: Now on meropenem and vanco covering e coli and staph epi. WBC now coming down. There is erythema and purulence coming around both drainage tubes. Will start on showering out drain sites with hibiclens and water and paint betadine at skin sites. Will remove dressing and tape completely and suture both drains to skin under local. Anticipate WBC to fall on appropriate antibiotics. Attestations Medical Necessity Statement*: Patiient with elevated wbc and needs to stay in hospital for perforated divticulitis with abscess formation. He as evidence of cellulitis around drain tube sites and will need wound care for this as well. Coding Level of Care Code 63579 Diagnoses Diverticular disease of intestine with perforation and abscess K57.80
--- NOTE | 2023-04-27 15:54 | PC.NURSE ---
Dr. Marr stitched drains on the left and right abdomen of patient with 3 stitches each. Patient is to take a shower, then swab around drain area with Iodine swabs daily.
--- NOTE | 2023-04-27 15:57 | PM.OP ---
Operative Report Date of procedure: April 27, 2023 Pre-op diagnosis: Superficial skin infection from around drain skin insertion site Post-op diagnosis: Same Procedure done: Removal of drain dressings and tape and placement of drain suture x3 for each of the two percutaneous drain sites Surgeon: Zeyad Chen MD Estimated blood loss: 1% lidocaine Complications: none Brief History: Patient with percutaneous drains placed for intra abdominal abscess from perforated diverticulitis. Purulence coming out from around around tube at skin insertion site. He has surrounding erythema c/w cellulitis and superficial skin infection versus reaction to tube. Procedure: After removing all dressing and tape securing two percutaneous drains to skin, skin was prepped and draped aseptically. 1% lidocaine was instilled into skin around drain tube insertion site and in skin around tube at hub site several centimeters awasy from skin insertion site. Two skin sutures of 2-0 nylon around skin insertion site to tubing were placed. A third skin suture was placed into skin securing tube hub to this area. The same was repeated on other side of abdomen to the second drain tubing. Drains were further secured to skin with mesenteric tape to skin. Drain sites were dressed with dry drain guaze.
[2023-04-27 16:00] VITALS: BP 128/84; PULSE 99; RESP 18; TEMP 36.4; O2SAT 99
[2023-04-27] MEDS: pantoprazole 40 mg SDV IVP (16:07)
[2023-04-27 19:04] VITALS: BP 129/77; PULSE 109; RESP 16; TEMP 36.9; O2SAT 98
[2023-04-27 23:24] VITALS: BP 142/88; PULSE 92; RESP 16; TEMP 36.5; O2SAT 96
[2023-04-28] MEDS: vancomycin 1,500 MG/300 ML PIGGYBACK 200 MG IV ×3 (02:40→19:19)
[2023-04-28 03:50] VITALS: BP 121/81; PULSE 80; RESP 16; TEMP 36.7; O2SAT 100
--- NOTE | 2023-04-28 04:18 | PC.NURSE ---
Wound care around the drain sites was performed per MD orders and drains flushed per orders as well at this time. Pt tolerated well.
[2023-04-28 05:54] LABS: Basophils # 0.1 10^3/uL (0.0-0.1); Basophils % 0.4 %; Eosinophils # 0.2 10^3/uL (0.0-0.8); Eosinophils % 1.2 %; Hematocrit 34.1 % (42.0-52.0); Hemoglobin 11.1 g/dL (11.7-16.6); Lymphocytes # 1.4 10^3/uL (0.8-4.8); Lymphocytes % 9.4 %; Mean Corpuscular HGB Conc 32.6 g/dL (30.0-36.0); Mean Corpuscular Hemoglobin 30.8 pg (28.0-34.0); Mean Corpuscular Volume 94.7 fl (80-94); Monocytes # 1.4 10^3/uL (0.2-0.9); Monocytes % 9.7 %; Neutrophils # 11.63 10^3/uL (1.8-7.7); Neutrophils % 78.5 %; Nucleated Red Blood Cells % 0 %; Platelet Count 540 10^3/cmm (130-400); Red Cell Distribution Width 14.5 % (12.1-15.1); White Blood Count 14.8 10^3/uL (4.0-10.0)
[2023-04-28 06:19] LABS: Alanine Aminotransferase 133 U/L (0-41); Albumin Level 2.7 g/dL (3.5-5.2); Alkaline Phosphatase 85 U/L (40-130); Anion Gap 12.9 (5-19); Aspartate Amino Transferase 41 U/L (0-40); Blood Urea Nitrogen 9 mg/dL (6-20); Calcium 8.3 mg/dL (8.5-10.5); Carbon Dioxide 25 mmol/L (22-29); Chloride 101 mmol/L (98-107); Globulin 3.8 g/dL (1.3-4.6); Glomerular Filtration Rate 185.1 mL/min (90-130); Glucose 92 mg/dL (65-115); Osmolality Calculated 278 mOsm/kg (285-295); Potassium 3.9 mmol/L (3.5-5.1); Sodium 135 mmol/L (136-145); Total Bilirubin 0.5 mg/dL (0.15-1.2); Total Protein 6.5 g/dL (6.6-8.7)
[2023-04-28] MEDS: meropenem 1,000 MG in sodium chloride 0.9% (plus) 50 ML 100 MG IV ×3 (06:22→22:52)
[2023-04-28] MEDS: HYDROcodone-acetaminophen 7.5-325 mg Tablet 1 TAB PO ×3 (06:50→21:01)
[2023-04-28 07:33] VITALS: BP 149/101; PULSE 96; RESP 18; TEMP 36.6; O2SAT 97
[2023-04-28 12:00] VITALS: BP 127/77; PULSE 101; RESP 16; TEMP 37.3; O2SAT 98
[2023-04-28] MEDS: enoxaparin 40 mg/0.4 mL Syringe SUBCUT (15:23)
[2023-04-28 16:00] VITALS: BP 118/78; PULSE 102; RESP 16; TEMP 37.5; O2SAT 98
--- NOTE | 2023-04-28 18:21 | PM.PN ---
Subjective Subjective: No complaints Vitals/I&O/Wt Last Vital Signs Temp 99.5 F 04/28/23 16:00 Pulse 102 H 04/28/23 16:00 Resp 16 04/28/23 16:00 BP 118/78 04/28/23 16:00 Pulse Ox 98 04/28/23 16:00 O2 Del Method Room Air 04/28/23 07:33 O2 Flow Rate 0 04/26/23 08:20 04/28/23 04/28/23 04/28/23 06:59 14:59 22:59 Intake Total 400 / 2420 780 / 780 50 / 830 Output Total 2144 / 3269 Balance -1744 / -849 780 / 780 50 / 830 Physical Exam Narrative: Patient is a well developed well nourished and in NAD and is afebrile with vitals stable and is answering questions appropriately with a normal affect and is alert and oriented x3 HEENT: normocephalic with normal external ears and nonicteric, oral mucosa moist and dentition normal for age, trachea midline with no large masses visualized Heart: RRR, no gallops murmurs or rubs, normal PMI with no thrills Lungs: normal excursions, no loud audible wheezing, no subcutaneous emphysema Abdomen: nondistended, no gross hepatosplenomegaly, no masses, no rigidity or rebound, no loud borborygmi Neuro: nonfocal, HART, grossly normal sensation Musculoskeletal: good muscle tone, no fasciculations, normal gait Skin: pink warm and dry with no rashes or ecchymosis Vascular: good radial pulses, no ulceration, less than 2 second capillary refill in hand : deferred SKin erythema much improved with wound care washing skin with hibiclens soap and water, less erythema right greater than left Urinary Catheter Management: Patton: Cath Placed During This Visit: yes, but has since been removed by the nurse Urinary Catheter Date of Insertion: 04/22/23 Urinary Catheter Time of Insertion: 13:30 Date Urinary Catheter Removed: 04/22/23 Time Urinary Catheter Discontinued: 15:35 Data 04/28/23 05:00 04/28/23 05:00 A&P Assessment and plan (1) Diverticular disease of intestine with perforation and abscess: Continue antibiotics and skin care. WBC is dropping and patient feeling better. He is tolerating soft food with BM Attestations Medical Necessity Statement*: Patient with perforated diverticulitis with abscess formation. He needs antibiotics and if WBC does not improve needs CT and possibly more drains placed. Coding Level of Care Code 33476 Diagnoses Diverticular disease of intestine with perforation and abscess K57.80
[2023-04-28] MEDS: pantoprazole 40 mg SDV IVP (18:49)
[2023-04-28 19:23] VITALS: BP 124/75; PULSE 110; RESP 15; TEMP 37.6; O2SAT 97
[2023-04-28 23:49] VITALS: BP 116/77; PULSE 101; RESP 16; TEMP 37.7; O2SAT 98
[2023-04-29] MEDS: vancomycin 1,500 MG/300 ML PIGGYBACK 200 MG IV ×3 (03:54→19:42)
[2023-04-29 04:00] VITALS: BP 126/80; PULSE 109; RESP 16; TEMP 37.4; O2SAT 96
--- NOTE | 2023-04-29 04:55 | PC.NURSE ---
wound care was provided around each drain site per MD orders and drains were also irrigated at this time per orders. Pt tolerated well.
[2023-04-29] MEDS: meropenem 1,000 MG in sodium chloride 0.9% (plus) 50 ML 100 MG IV ×3 (06:42→22:29)
[2023-04-29] MEDS: HYDROcodone-acetaminophen 7.5-325 mg Tablet 1 TAB PO ×3 (06:49→22:29)
[2023-04-29 07:38] LABS: Basophils # 0.1 10^3/uL (0.0-0.1); Basophils % 0.3 %; Eosinophils # 0.1 10^3/uL (0.0-0.8); Eosinophils % 0.5 %; Hematocrit 35.7 % (42.0-52.0); Hemoglobin 11.9 g/dL (11.7-16.6); Lymphocytes # 1.6 10^3/uL (0.8-4.8); Lymphocytes % 7.4 %; Mean Corpuscular HGB Conc 33.3 g/dL (30.0-36.0); Mean Corpuscular Hemoglobin 31.4 pg (28.0-34.0); Mean Corpuscular Volume 94.2 fl (80-94); Mean Platelet Volume 8.9 fL (7.4-10.4); Monocytes # 1.7 10^3/uL (0.2-0.9); Monocytes % 7.9 %; Neutrophils # 17.67 10^3/uL (1.8-7.7); Nucleated Red Blood Cells % 0 %; Platelet Count 635 10^3/cmm (130-400); Red Blood Count 3.79 10^6/uL (4.1-5.3); Red Cell Distribution Width 14.3 % (12.1-15.1); White Blood Count 21.3 10^3/uL (4.0-10.0)
[2023-04-29 07:57] LABS: Alanine Aminotransferase 148 U/L (0-41); Albumin Level 2.9 g/dL (3.5-5.2); Alkaline Phosphatase 94 U/L (40-130); Anion Gap 14.1 (5-19); Aspartate Amino Transferase 40 U/L (0-40); Blood Urea Nitrogen 9 mg/dL (6-20); Calcium 8.3 mg/dL (8.5-10.5); Carbon Dioxide 27 mmol/L (22-29); Chloride 99 mmol/L (98-107); Globulin 3.8 g/dL (1.3-4.6); Glucose 94 mg/dL (65-115); Osmolality Calculated 280 mOsm/kg (285-295); Potassium 4.1 mmol/L (3.5-5.1); Sodium 136 mmol/L (136-145); Total Bilirubin 0.6 mg/dL (0.15-1.2); Total Protein 6.7 g/dL (6.6-8.7)
[2023-04-29 07:59] VITALS: BP 112/83; PULSE 118; RESP 15; TEMP 36.6; O2SAT 97
--- NOTE | 2023-04-29 10:20 | CT_ITS ---
WS: [id number] CT ABDOMEN PELVIS TECHNIQUE: Contrast-enhanced CT of the abdomen and pelvis with coronal and sagittal reformatted image s. CLINICAL INFORMATION: diverticulitis withabscess COMPARISON: April 22, 2023 DLP: 1037.[address] scans at [facility] use at least one of these dose optimization techniques: automated e xposure control; mA and/or kV adjustment per patient size (includes targeted exams where dose is matc hed to clinical indication); or iterative reconstruction. FINDINGS: Significant interval improvement of the abscess collections associated with the 2 pigtail drainage ca theters. Previously described large abscess with air-fluid level along the dorsal aspect of the blad michael is significantly improved and nearly resolved. Small areas of residual fluid in this area measuri ng up to 2.0 cm. The 2nd drain in the LEFT midabdomen with drainage of the previously described air-filled abscess has also significantly improved with residual small abscess cavity with air-fluid levels. This measures approximately 3.1 x 1.9 CM. Drain appears in good position. Previously aspirated RIGHT lower quadrant collection with peripheral enhancement today measures 3.3 x 4.4 cm improved compared to previous where it measured approximately 6.8 x 4.4 CM. Small RIGHT perimedian mesenteric collection measures 2.4 cm significant improved from previous where it measured 5.2 x 3.7 CM. Celulitis with air involving the subcutaneous lower abdominal wall fat and pannus with extraperitonea l air visualized in the rectus abdominis and LEFT abdominal wall. This presumably due to reported rec ent skin infection about the drains. No drainable fluid collections in this area. Mild diffuse fatty infiltration liver. Gallbladder is contracted. Slight RIGHT lower lobe compressive atelectasis. Adrenal glands are normal. Normal renal parenchymal enhancement. No hydronephrosis. Ur ine distended bladder. Persistent thickening of the sigmoid colon compatible with diverticulitis.No o ther significant changes compared to previous. CT/CT abdomen pelvis w con* [id number] IMPRESSION: 1. Significant interval improvement in the abdominal and pelvic abscesses with associated pigtail catheters described above. 2. Interval improvement in the peripheral enhancing RIGHT lower quadrant aspir ated collection today measuring 4.4 x 3.3 CM. 3. Additional midline mesenteric collection measuring 2.5 cm has significantly improved and nearly resolved. 4. Subcutaneous air within the lower abdominal wall fat and pannus presumably due to recent skin infection about the drainage catheters. 5. Associated air in the rectus abdominis and abdominal wall musculature. Discussed with Earl Chen MD at 04/29/2023 12:29 PM.
[2023-04-29 11:06] LABS: Vancomycin Trough 13.5 ug/mL (10-15)
--- NOTE | 2023-04-29 11:20 | PM.PN ---
Subjective Subjective: No complaints Vitals/I&O/Wt Last Vital Signs Temp 97.8 F 04/29/23 07:59 Pulse 118 H 04/29/23 07:59 Resp 15 04/29/23 07:59 BP 112/83 04/29/23 07:59 Pulse Ox 97 04/29/23 07:59 O2 Del Method Room Air 04/29/23 07:59 O2 Flow Rate 0 04/26/23 08:20 04/28/23 04/29/23 04/29/23 22:59 06:59 14:59 Intake Total 350 / 1130 800 / 1930 360 / 360 Output Total 465 / 465 410 / 875 Balance -115 / 665 390 / 1055 360 / 360 Physical Exam Narrative: Patient is a well developed well nourished and in NAD and is afebrile with vitals stable and is answering questions appropriately with a normal affect and is alert and oriented x3 HEENT: normocephalic with normal external ears and nonicteric, oral mucosa moist and dentition normal for age, trachea midline with no large masses visualized Heart: RRR, no gallops murmurs or rubs, normal PMI with no thrills Lungs: normal excursions, no loud audible wheezing, no subcutaneous emphysema Abdomen: nondistended, no gross hepatosplenomegaly, no masses, no rigidity or rebound, no loud borborygmi Neuro: nonfocal, HART, grossly normal sensation Musculoskeletal: good muscle tone, no fasciculations, normal gait Skin: pink warm and dry with no rashes or ecchymosis Vascular: good radial pulses, no ulceration, less than 2 second capillary refill in hand : deferred Less erythema around drain skin site. Urinary Catheter Management: Patton: Cath Placed During This Visit: yes, but has since been removed by the nurse Urinary Catheter Date of Insertion: 04/22/23 Urinary Catheter Time of Insertion: 13:30 Date Urinary Catheter Removed: 04/22/23 Time Urinary Catheter Discontinued: 15:35 Data 04/29/23 06:54 04/29/23 06:54 A&P Assessment and plan (1) Diverticular disease of intestine with perforation and abscess: WBC is back up. He may have an undrained fluid collection as cause. Will repeat CT scan. If a 5 cm fluid collection is seen will likely need to send out to IR at bigger facility. I asked infectious disease to see patient. She is back now. Attestations Medical Necessity Statement*: Patient with worsening diverticulitis and abscess. He needs repeat CT scan Coding Level of Care Code 95941 Diagnoses Diverticular disease of intestine with perforation and abscess K57.80
[2023-04-29] MEDS: iohexol 350 mg/mL 500 mL Btl (per mL) IV (12:05)
[2023-04-29] MEDS: iohexol 350 mg/mL 500 mL Btl (per mL) PO (12:06)
[2023-04-29] MEDS: enoxaparin 40 mg/0.4 mL Syringe SUBCUT (14:52)
[2023-04-29 15:50] VITALS: BP 117/78; PULSE 113; RESP 18; TEMP 37.4; O2SAT 99
--- NOTE | 2023-04-29 17:07 | P.CONIM_ITS ---
Providers/Reason For Consult Consulting Physician/Specialty*: Cindi Pineda MD/ Infectious Disease Reason for Consult*: persisting leukocytosis Requesting Physician: Dr. Chen, General surgery Attending Physician: Syd Leo DO History of Present Illness History of Present Illness Bridger Mccabe is a 37 year old male who was admitted to the hospital to the general service surgery service on April 17, 2023 with a 3-day history of right lower quadrant abdominal pain. He had some fever and chills prior to his admission. Noncontrast CT of the abdomen and pelvis showed a complicated diverticulitis with microperforation and an early abscess approximately 3 cm in the pelvis. Patient was started on conservative treatment with piperacillin/tazobactam. His white blood cell count was improving from 23 down to 10.9 on April 19. On April 20 his leukocytosis started to worsen. He had been afebrile upon admission and remained so until April 22, 2023 where he had a te mperature of 100.7 Fahrenheit. On April 20, a CT of the abdomen and pelvis with contrast was performed which showed progression of multifocal abscesses The largest loctaed in the central pelvis measured 6.5 x 9.8 cm, one smaller more anteriorly measured 5.9 x 3.7 cm,, with both abutting the sigmoid colon. A third abscess noted in the central mesentry measuring 5.9 x 3.7 cm with addito nal smaller pcokets throughout the mesentry. Etiology of these collections may be diverticular disease but there is very little diverticular burden per radiology report. On 04/22/23 he underwent pelvic drain placements and aspiration by radiology. There was successful aspiration of her right lower pelvic and a right pericentral abdominal abscess cavity with drainage of 150 cc of purulent material. Fluid was sent for cultures. 10 Japanese pigtail catheters were placed into the pelvic and the left pericentral abdominal abscess cavities. Culture from this aspirate showed E. coli resistant to piperacillin/tazobactam. Clinically patient had a fever of 100.7 Fahrenheit on April 22, 2023 after the aspiration. Prior to then he had been afebrile. He was again afebrile between April 23 to April 27. Since yesterday he has had low-grade temperature of 99.7- 99.8 Fahrenheit. White blood cell count trend has ranged from 23.1 on admission, down to 14.5 on April 23, 2023. Thereafter white blood cell count has been ranging between 14.8- 21.7. He is currently tolerating a GI soft diet AbX history : Meropenem 2g iv every 8 hrs 04/26/23- current zosyn 04/17-04/26 Vancomycin iv 04/24/23 - current Review of Systems General: Reports: 10 or more systems reviewed and unremarkable except in HPI and below Const: Denies: fever(s), chills or body aches Eyes: Denies: change in vision, blurry vision or photophobia ENMT: Reports: hoarseness; Denies: throat pain, enlarged tonsils, odynophagia or nasal congestion Card: Denies: chest pain, palpitations, irregular heart rhythm, edema, swelling of feet/ankles, lightheadedness, pre-syncope, dyspnea on exertion or orthopnea Resp: Denies: dyspnea, productive cough, non-productive cough, wheezing, stridor, pain on inspiration, change in phlegm color, hemoptysis or chest congestion GI: Denies: abdominal pain, nausea, vomiting, hematemesis, coffee ground emesis, dysphagia, heartburn, diarrhea, constipation, GI cramping, change in stool character, hematochezia or melena : Denies: flank pain, dysuria, urinary frequency, urinary urgency, urinary hesitancy or hematuria Musc: Denies: neck pain, back pain, extremity pain, joint swelling, joint warmth or deformity Neuro: Denies: headache(s), numbness in extremities, weakness in extremities, sensory changes, difficulty walking, frequent falls, dizziness, vertigo, behavioral changes, Slurred speech present or seizure-like activity Psych: Denies: anxiety, depression, suicidal ideation or homicidal ideation Endo: Denies: polyuria, polydipsia, tired all the time, cold intolerance or hot flashes César/Lymph: Denies: easy bruising or easy bleeding Medications/Allergies Home Medications Medication Instructions Recorded Confirmed Last Taken Type chlorhexidine gluconate 4 % 1 applic topical Q5M 2 doses #237 05/01/23 05/13/23 Unknown Rx topical liquid (Hibiclens) mL hydrocodone 7.5 mg-acetaminophen 1 tab PO Q6H PRN pain #30 tabs 05/01/23 05/13/23 Unknown Rx 325 mg tablet docusate sodium 100 mg capsule 100 mg PO DAILY PRN for hard 05/02/23 05/13/23 Unknown Rx (Colace) stools #20 caps ciprofloxacin HCl 500 mg tablet 500 mg PO BID #28 tabs 05/13/23 05/13/23 Unknown Rx metronidazole 500 mg tablet 500 mg PO TID #42 tabs 05/13/23 05/13/23 Unknown Rx Allergies Allergy/AdvReac Type Severity Reaction Status Date / Time No Known Allergies Allergy Verified 05/13/23 11:55 Current Medications Generic Name Dose Route Start Last Admin Trade Name Freq PRN Reason Stop Dose Admin Hydrocodone Bitart/Acetaminophen 1 tab 04/22/23 16:48 04/29/23 14:49 Hydrocodone-Acetaminophen 7.5-325 Mg Tablet PO 1 tab Q4H PRN Administration MODERATE PAIN Enoxaparin Sodium 40 mg 04/17/23 14:00 04/29/23 14:52 Enoxaparin 40 Mg/0.4 Ml Syringe SUBCUT 40 mg Q24H TETE Administration Vancomycin/PEG/NADA/Lysine/Water 1,500 mg in 300 mls @ 200 mls/hr 04/24/23 11:30 04/29/23 14:26 Vancocin IV Infused Q8H TETE Infusion Meropenem 1,000 mg/ Sodium 50 mls @ 100 mls/hr 04/26/23 11:30 04/29/23 14:49 Chloride IV 100 mls/hr Q8H TETE Administration Protocol Ondansetron HCl 4 mg 04/17/23 12:55 04/21/23 02:42 Ondansetron 2 Mg/Ml Sdv 2 Ml IVP 4 mg Q6H PRN Administration vomiting, or N/V if npo Pantoprazole Sodium 40 mg 04/17/23 13:00 04/28/23 18:49 Pantoprazole 40 Mg Sdv IVP 40 mg Q24H TETE Administration PFSH Acute PFSH: Medical History Acute kidney injury Severe sepsis Family History Grandmother Diabetes Social History Smoking and tobacco status: never smoked Alcohol intake: current Alcohol intake frequency: holidays/special occasions only Alcohol type: beer Vitals/I&O/Wt Last Vital Signs Temp 99.3 F 04/29/23 15:50 Pulse 113 H 04/29/23 15:50 Resp 18 04/29/23 15:50 BP 117/78 04/29/23 15:50 Pulse Ox 99 04/29/23 15:50 O2 Del Method Room Air 04/29/23 15:50 O2 Flow Rate 0 04/26/23 08:20 04/29/23 04/29/23 04/29/23 06:59 14:59 22:59 Intake Total 800 / 1930 830 / 830 Output Total 410 / 875 300 / 300 Balance 390 / 1055 830 / 830 -300 / 530 Physical Exam Narrative: General: No acute distress, AO x3 HEENT: PERRLA, pupils bilaterally equal and reactive, pallors not present Chest: Normal vesicular breath sounds, no added sounds, equal good air entry bilaterally CVS: S1-S2 regular, no murmurs, no tachycardia, no gallops, no rubs Abdomen: Soft, mldly distended, KERRI drains noted over lower abdomen with bloody serosanginous output, signs of cellulitis over lower abdomen with pus like discharge at insertion sites. No gross fluctuance noted. Neuro: No focal deficits, no facial deformity, AO x3, power 5/5 in all limbs Urinary Catheter Management: Patton: Cath Placed During This Visit: yes, but has since been removed by the nurse Urinary Catheter Date of Insertion: 04/22/23 Urinary Catheter Time of Insertion: 13:30 Date Urinary Catheter Removed: 04/22/23 Time Urinary Catheter Discontinued: 15:35 Data 04/30/23 06:13 04/30/23 06:13 Other Labs: [address] [address] [address] Scan Report Signed Patient: Bridger Mccabe Unit #: [id number] : 1985 Age/Sex: 37 / M ADM Date: 04/17/23 Loc: [facility] Room/Bed: [facility] Attending Dr: Syd Leo DO Ordering Provider/Ordering MD: Earl Chen MD Date of Service: 04/29/23 Procedure(s): CT abdomen pelvis w con* [id number] Accession Number(s): [id number] Report Number: [id number] WS: [id number] CT ABDOMEN PELVIS TECHNIQUE: Contrast-enhanced CT of the abdomen and pelvis with coronal and sagittal reformatted images. CLINICAL INFORMATION: diverticulitis withabscess COMPARISON: April 22, 2023 DLP: 1037.[address] scans at [facility] use at least one of these dose optimization techniques: automated exposure control; mA and/or kV adjustment per patient size (includes targeted exams where dose is matched to clinical indication); or iterative reconstruction. FINDINGS: Significant interval improvement of the abscess collections associated with the 2 pigtail drainage catheters. Previously described large abscess? with air-fluid level along the dorsal aspect of the bladder is significantly improved and nearly resolved. Small areas of residual fluid in this area measuring up to 2.0 cm. The 2nd drain in the LEFT midabdomen with drainage of the previously described air-filled abscess has also significantly improved with residual small abscess cavity with air-fluid levels. This measures approximately 3.1 x 1.9 CM. Drain appears in good position. Previously aspirated RIGHT lower quadrant collection with peripheral enhancement today measures 3.3 x 4.4 cm improved compared to previous where it measured approximately 6.8 x 4.4 CM. Small RIGHT perimedian mesenteric collection measures 2.4 cm significant improved from previous where it measured 5.2 x 3.7 CM. Celulitis with air involving the subcutaneous lower abdominal wall fat and pannus with extraperitoneal air visualized in the rectus abdominis and LEFT abdominal wall. This presumably due to reported recent skin infection about the drains. No drainable fluid collections in this area. Mild diffuse fatty infiltration liver. Gallbladder is contracted. Slight RIGHT lower lobe compressive atelectasis.? Adrenal glands are normal. Normal renal parenchymal enhancement. No hydronephrosis. Urine distended bladder. Persistent thickening of the sigmoid colon compatible with diverticulitis.No other significant changes compared to previous. CT/CT abdomen pelvis w con* [id number] IMPRESSION: ? 1.? Significant interval improvement in the abdominal and pelvic abscesses with associated pigtail catheters described above. 2.? Interval improvement in the peripheral enhancing RIGHT lower quadrant aspirated collection today measuring 4.4 x 3.3 CM. 3.? Additional midline mesenteric collection measuring 2.5 cm has significantly improved and nearly resolved. 4.? Subcutaneous air within the lower abdominal wall fat and pannus presumably due to recent skin infection about the drainage catheters. 5.? Associated air in the rectus abdominis and abdominal wall musculature. Launch?Image Signature [address] [place] [address] XRay Report Signed Patient: Bridger Mccabe Unit #: [id number] : 1985 Age/Sex: 37 / M ADM Date: 04/17/23 Loc: [facility] Room/Bed: 262-[address]: Syd Leo DO Ordering Provider/Ordering MD: Ray Pineda MD Date of Service: 04/29/23 Procedure(s): XR chest 1V portable [id number] Accession Number(s): [id number] Report Number: [id number] PROCEDURE INFORMATION: Exam: XR Chest Exam date and time: 04/29/2023 5:58 PM Age: 37 years old Clinical indication: Fever; Additional info: Fever, source evaluation TECHNIQUE: Imaging protocol: Radiologic exam of the chest. Views: 1 view. COMPARISON: CR (CHEST, ) 04/17/2023 5:29 AM FINDINGS: Lungs: Hypoinflated lungs. No consolidation. Pleural spaces: Unremarkable. No pleural effusion. No pneumothorax. Heart/Mediastinum: Unremarkable. No cardiomegaly. Bones/joints: Unremarkable. XR/XR chest 1V portable [id number] IMPRESSION: No acute findings. ? Other data: [facility] [address] [place] [id number] 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 RX --------- ------ * Amikacin <=16 S * Amoxicillin/Clavulanate >16/8 R * Ampicillin >16 R * Ampicillin/Sulbactam >16/8 R * Aztreonam <=4 S * Cefepime <=8 S * Ceftriaxone <=1 S * Cefuroxime <=4 S * Ciprofloxacin <=1 S * Gentamicin <=2 S * Imipenem <=1 S * Levofloxacin <=2 S * Tetracycline >8 R * Trimethoprim/Sulfamethoxazole >2/38 R * Piperacillin/Tazobactam >64 R Body Fluid Culture Preliminary (changed) 04/25/23-1101 Organism 1 Gram Negative Rods Growth HEAVY DAY 2, RESULTS TO FOLLOW Body Fluid Culture Preliminary (changed) 04/24/23-1506 DAY 1, RESULTS TO FOLLOW [facility] [address] [place] [address] DR. EUFEMIA BARRAZA, AUXILIARY POWERPLANT OPERATOR NAME: Bridger Mccabe [facility] #: [id number] LOC: [facility] #: [id number] AGE/SX: 37/M ROOM: [facility] RE04/17/[address]: Syd Leo DO : 1985 BED: 1 DIS: 05/02/23 FAX #: STATUS: DIS IN TLOC: Spec #: [id number] Nelli: 04/22/23 Status: COMP Req #: [id number] Recd: 04/22/[address]: Syd Leo DO Src: Other Sour SpDesc: Ordered: Absces Cult&GS Comments: Comment PELVIS Procedure Result Verified Site Gram Stain Final 04/23/23-1709 Result MANY GRAM POSITIVE COCCI IN PAIRS MANY WHITE BLOOD CELLS Abscess Culture Final 04/25/23 Organism 1 Escherichia coli Growth HEAVY MODERATE MIXED SUPERFICIAL ERICA ON DAY 3 NO COAGULASE POSITIVE STAPHYLOCOCCUS PRESENT E coli M.I.C. RX --------- ------ * Amikacin <=16 S * Amoxicillin/Clavulanate >16/8 R * Ampicillin >16 R * Ampicillin/Sulbactam >16/8 R * Aztreonam <=4 S * Cefepime <=8 S * Ceftriaxone <=1 S * Cefuroxime <=4 S * Ciprofloxacin <=1 S * Gentamicin <=2 S * Imipenem <=1 S * Levofloxacin <=2 S * Tetracycline >8 R * Trimethoprim/Sulfamethoxazole >2/38 R * Piperacillin/Tazobactam >64 R Abscess Culture Preliminary (changed) 04/24/23-1213 Organism 1 Gram Negative Rods Growth HEAVY Organism 2 Coag positive Staphylococcus Growth HEAVY DAY 2, RESULTS TO FOLLOW Abscess Culture Preliminary (changed) 04/23/23-1734 DAY 1, RESULTS TO FOLLOW A&P Assessment and plan (1) Skin abscess: (2) Diverticular disease of intestine with perforation and abscess: Plan 37-year-old male without prior history of any abdominal issues admitted to the hospital currently on April 17, 2023 with 3-day history of right lower quadrant pain. He was found to have a complicated diverticulitis with microperforation and an early abscess approximately 3 cm in the pelvis which appeared to have been worsening on serial exams. On April 22, 2023 he underwent pelvic drain placement and aspiration by radiology. There was successful aspiration of the right lower pelvic and right pericentral abdominal abscess cavity with drainage of 150 cc of purulent material. Culture from this material has revealed growth of E. coli which is resistant to piperacillin/tazobactam which patient had been receiving until April 25, 2023. It appears there was delay in identifying the organism. On April 26, 2023 antibiotics were changed to meropenem and vancomycin had been also recently added due to noted lower extremity cellulitis and drainage from insights of KERRI insertion. Since then patient reports clinical improvement. He states that his abdominal pain is much improved. He is able to tolerate a diet. He is feeling much better, requiring minimal pain medication. He is passing flatus and has had bowel movements. Current active issues include persisting low-grade fever with Tmax 99.8 Fahrenheit and persisting leukocytosis. CT of the abdomen and pelvis was ordered this morning for the above reason which is actually showing serial improvement, in keeping with improving clinical picture overall. Since patient is otherwise improving, and has CT evidence of improvement as well, would like to rule out other causes of persisting fever and leukocytosis. Check chest x-ray Check UA and urine culture Check respiratory viral panel Check blood culture. Previous blood cultures taken on April 17, 2023 were negative. Continue meropenem and vancomycin We will follow Coding Level of Care Code Acute Code for [facility] Diagnoses Skin abscess L02.91 Diverticular disease of intestine with perforation and abscess K57.80
--- NOTE | 2023-04-29 17:28 | XRR_ITS ---
PROCEDURE INFORMATION: Exam: XR Chest Exam date and time: 04/29/2023 5:58 PM Age: 37 years old Clinical indication: Fever; Additional info: Fever, source evaluation TECHNIQUE: Imaging protocol: Radiologic exam of the chest. Views: 1 view. COMPARISON: CR (CHEST, ) 04/17/2023 5:29 AM FINDINGS: Lungs: Hypoinflated lungs. No consolidation. Pleural spaces: Unremarkable. No pleural effusion. No pneumothorax. Heart/Mediastinum: Unremarkable. No cardiomegaly. Bones/joints: Unremarkable. XR/XR chest 1V portable [id number] IMPRESSION: No acute findings.
[2023-04-29 19:13] VITALS: BP 115/78; PULSE 113; RESP 16; TEMP 37.1; O2SAT 99
[2023-04-29] MEDS: pantoprazole 40 mg SDV IVP (21:10)
[2023-04-29 23:47] VITALS: BP 116/78; PULSE 103; RESP 15; TEMP 37.1; O2SAT 99
[2023-04-29 23:47] LABS: Adenovirus Not Detected (NOT DETECT); Chlamydia Pneumoniae Not Detected (NOT DETECT); Coronavirus 229E,HKU1,NL63,OC4 Not Detected (NOT DETECT); Human Metapneumovirus Not Detected (NOT DETECT); Human Rhinovirus/Enterovirus Not Detected (NOT DETECT); Influenza A Not Detected (NOT DETECT); Influenza A H1 Not Detected (NOT DETECT); Influenza A H1-2009 Not Detected (NOT DETECT); Influenza A H3 Not Detected (NOT DETECT); Influenza B Not Detected (NOT DETECT); Mycoplasma Pneumoniae Not Detected (NOT DETECT); Parainfluenza Virus Type 1 Not Detected (NOT DETECT); Parainfluenza Virus Type 2 Not Detected (NOT DETECT); Parainfluenza Virus Type 3 Not Detected (NOT DETECT); Parainfluenza Virus Type 4 Not Detected (NOT DETECT); Respiratory Syncytial Virus A Not Detected (NOT DETECT); Respiratory Syncytial Virus B Not Detected (NOT DETECT); SARS-COV-2 Not Detected (NOT DETECT)
[2023-04-30] MEDS: HYDROcodone-acetaminophen 7.5-325 mg Tablet 1 TAB PO ×5 (02:45→21:29)
[2023-04-30] MEDS: vancomycin 1,500 MG/300 ML PIGGYBACK 200 MG IV ×2 (03:20→11:55)
[2023-04-30 03:56] VITALS: BP 101/67; PULSE 87; RESP 14; TEMP 36.8; O2SAT 98
[2023-04-30] MEDS: meropenem 1,000 MG in sodium chloride 0.9% (plus) 50 ML 100 MG IV (06:04)
[2023-04-30 06:20] LABS: Add Urine Microscopic? YES; Bilirubin Urine Neg (Negative); Blood Urine 2+ (Negative); Glucose Urine UA Norm (Normal); Ketones Urine Negative (Negative); Leukocyte Esterase Urine Negative (Negative); Nitrate Urine Negative (Negative); Protein Urine Neg (Negative); Specific Gravity, Urine 1.015 (1.005-1.030); Urine Appearance Clear (CLEAR); Urine Color Light yellow (Yellow); Urobilinogen Urine Neg (Negative); pH Urine 6 (5-7)
[2023-04-30 06:21] LABS: Add Urine Culture? No; Bacteria Urine TRACE /hpf
[2023-04-30 06:39] LABS: Basophils # 0.1 10^3/uL (0.0-0.1); Basophils % 0.5 %; Eosinophils # 0.1 10^3/uL (0.0-0.8); Eosinophils % 0.9 %; Hematocrit 36.7 % (42.0-52.0); Hemoglobin 11.7 g/dL (11.7-16.6); Lymphocytes # 1.7 10^3/uL (0.8-4.8); Lymphocytes % 10.8 %; Mean Corpuscular HGB Conc 31.9 g/dL (30.0-36.0); Mean Corpuscular Hemoglobin 30.8 pg (28.0-34.0); Mean Corpuscular Volume 96.6 fl (80-94); Mean Platelet Volume 8.9 fL (7.4-10.4); Monocytes # 1.6 10^3/uL (0.2-0.9); Monocytes % 10.5 %; Neutrophils % 76.5 %; Nucleated Red Blood Cells % 0 %; Platelet Count 623 10^3/cmm (130-400); Red Cell Distribution Width 14.3 % (12.1-15.1); White Blood Count 15.6 10^3/uL (4.0-10.0)
[2023-04-30 06:58] LABS: Alanine Aminotransferase 128 U/L (0-41); Albumin Level 3.3 g/dL (3.5-5.2); Alkaline Phosphatase 88 U/L (40-130); Aspartate Amino Transferase 27 U/L (0-40); Blood Urea Nitrogen 9 mg/dL (6-20); Calcium 8.8 mg/dL (8.5-10.5); Carbon Dioxide 29 mmol/L (22-29); Chloride 100 mmol/L (98-107); Globulin 3.9 g/dL (1.3-4.6); Glucose 87 mg/dL (65-115); Osmolality Calculated 284 mOsm/kg (285-295); Sodium 138 mmol/L (136-145); Total Bilirubin 0.4 mg/dL (0.15-1.2); Total Protein 7.2 g/dL (6.6-8.7)
[2023-04-30 07:53] VITALS: BP 126/85; PULSE 108; RESP 18; TEMP 36.8; O2SAT 98
[2023-04-30 11:22] VITALS: BP 129/73; PULSE 105; RESP 18; O2SAT 96
[2023-04-30 15:23] VITALS: BP 128/70; PULSE 99; RESP 18; TEMP 36.7; O2SAT 96
[2023-04-30] MEDS: enoxaparin 40 mg/0.4 mL Syringe SUBCUT (15:34)
[2023-04-30] MEDS: metroNIDAZOLE 500 MG Tablet PO ×2 (15:34→21:32)
--- NOTE | 2023-04-30 17:43 | PM.PN ---
Subjective Subjective: NO complaints Vitals/I&O/Wt Last Vital Signs Temp 98.0 F 04/30/23 15:23 Pulse 99 04/30/23 15:23 Resp 18 04/30/23 15:23 BP 128/70 04/30/23 15:23 Pulse Ox 96 04/30/23 15:23 O2 Del Method Room Air 04/30/23 15:23 O2 Flow Rate 0 04/26/23 08:20 04/30/23 04/30/23 04/30/23 06:59 14:59 22:59 Intake Total 640 / 2020 900 / 900 Output Total 50 / 50 Balance 640 / 1320 900 / 900 -50 / 850 Physical Exam Narrative: Patient is a well developed well nourished and in NAD and is afebrile with vitals stable and is answering questions appropriately with a normal affect and is alert and oriented x3 HEENT: normocephalic with normal external ears and nonicteric, oral mucosa moist and dentition normal for age, trachea midline with no large masses visualized Heart: RRR, no gallops murmurs or rubs, normal PMI with no thrills Lungs: normal excursions, no loud audible wheezing, no subcutaneous emphysema Abdomen: nondistended, no gross hepatosplenomegaly, no masses, no rigidity or rebound, no loud borborygmi Neuro: nonfocal, HART, grossly normal sensation Musculoskeletal: good muscle tone, no fasciculations, normal gait Skin: pink warm and dry with no rashes or ecchymosis Vascular: good radial pulses, no ulceration, less than 2 second capillary refill in hand : deferred Urinary Catheter Management: Patton: Cath Placed During This Visit: yes, but has since been removed by the nurse Urinary Catheter Date of Insertion: 04/22/23 Urinary Catheter Time of Insertion: 13:30 Date Urinary Catheter Removed: 04/22/23 Time Urinary Catheter Discontinued: 15:35 Data 04/30/23 06:13 04/30/23 06:13 Micro: Microbiology 04/29/23 18:11 Gram Stain - Final Abdomen Wound Culture - Preliminary 04/30/23 06:00 Blood Culture - Preliminary Blood SPECIMEN COLLECTED 04/30/23 06:00 Blood Culture - Preliminary Blood SPECIMEN COLLECTED A&P Assessment and plan (1) Diverticular disease of intestine with perforation and abscess: I discussed case with ID and plan is to transition to po flagyl and cipro. Patient will monitor at home and call for fever. He will get CT scan repeated in a week to make sure RLQ 4cm fluid collection is decreasing. It was originally 7 cn and aspirated but no drain placed. There appears to to some small amount of fluid and air at two drain sites. WBC seems to fluctuate from 15k to 22k. He has only been on correct antibiotics for about 4 days now and likely will need at least full 2 weeks of antibiotics. He is eating well with BM. Targeting to go home in next couple of days. He will continue to take care of drains with bid saline irrigations and will wash area with hibiclens soap and shower water then cover area with guaze. He will apply betadine around drain sites 2-3 times a day. Attestations Medical Necessity Statement*: Patient in hospital for antibiotics and drain care. Coding Level of Care Code 65650 Diagnoses Diverticular disease of intestine with perforation and abscess K57.80
[2023-04-30 20:00] VITALS: BP 130/94; PULSE 103; RESP 18; TEMP 36.9; O2SAT 98
[2023-04-30] MEDS: pantoprazole 40 mg SDV IVP (20:10)
[2023-04-30] MEDS: ciprofloxacin 500 mg Tablet PO (21:29)
[2023-05-01] VITALS: BP 122/84; PULSE 85; RESP 18; TEMP 36.8; O2SAT 100
[2023-05-01 04:00] VITALS: BP 112/76; PULSE 75; RESP 16; TEMP 36.6; O2SAT 98
[2023-05-01] MEDS: HYDROcodone-acetaminophen 7.5-325 mg Tablet 1 TAB PO ×3 (06:08→20:29)
[2023-05-01 08:00] VITALS: BP 124/80; PULSE 89; RESP 16; TEMP 36.8; O2SAT 99
[2023-05-01] MEDS: ciprofloxacin 500 mg Tablet PO ×2 (08:33→20:29)
[2023-05-01] MEDS: metroNIDAZOLE 500 MG Tablet PO ×3 (08:33→20:29)
[2023-05-01 12:00] VITALS: BP 122/79; PULSE 90; RESP 17; TEMP 37.3; O2SAT 99
[2023-05-01] MEDS: enoxaparin 40 mg/0.4 mL Syringe SUBCUT (14:04)
[2023-05-01 16:00] VITALS: BP 126/86; PULSE 101; RESP 16; TEMP 36.8; O2SAT 96
--- NOTE | 2023-05-01 16:50 | PM.PN ---
Subjective Subjective: No complaints Vitals/I&O/Wt Last Vital Signs Temp 99.2 F 05/01/23 12:00 Pulse 90 05/01/23 12:00 Resp 17 05/01/23 12:00 BP 122/79 05/01/23 12:00 Pulse Ox 99 05/01/23 12:00 O2 Del Method Room Air 05/01/23 04:00 O2 Flow Rate 0 05/01/23 08:00 05/01/23 05/01/23 05/01/23 06:59 14:59 22:59 Intake Total 960 / 960 Output Total 360 / 410 Balance -360 / 730 960 / 960 Physical Exam Narrative: Patient is a well developed well nourished and in NAD and is afebrile with vitals stable and is answering questions appropriately with a normal affect and is alert and oriented x3 HEENT: normocephalic with normal external ears and nonicteric, oral mucosa moist and dentition normal for age, trachea midline with no large masses visualized Heart: RRR, no gallops murmurs or rubs, normal PMI with no thrills Lungs: normal excursions, no loud audible wheezing, no subcutaneous emphysema Abdomen: nondistended, no gross hepatosplenomegaly, no masses, no rigidity or rebound, no loud borborygmi Neuro: nonfocal, HART, grossly normal sensation Musculoskeletal: good muscle tone, no fasciculations, normal gait Skin: pink warm and dry with no rashes or ecchymosis Vascular: good radial pulses, no ulceration, less than 2 second capillary refill in hand : deferred abdominal panniculus with no significant erythema anymore. Urinary Catheter Management: Patton: Cath Placed During This Visit: yes, but has since been removed by the nurse Urinary Catheter Date of Insertion: 04/22/23 Urinary Catheter Time of Insertion: 13:30 Date Urinary Catheter Removed: 04/22/23 Time Urinary Catheter Discontinued: 15:35 Data 04/30/23 06:13 04/30/23 06:13 Micro: Microbiology 04/29/23 18:11 Gram Stain - Final Abdomen Wound Culture - Preliminary 04/30/23 02:15 Urine Culture - Preliminary Urine,Clean Catch 04/30/23 06:00 Blood Culture - Preliminary Blood NEGATIVE TO DATE 04/30/23 06:00 Blood Culture - Preliminary Blood NEGATIVE TO DATE A&P Assessment and plan (1) Diverticular disease of intestine with perforation and abscess: Patient will go home on cipro and flagyl for at least 10 more days and norco and zofran prn. He will get repeat CT scan of abdomen to see if drains can be removed and also to see if new drains need to be placed. He will see ID Dr. Pineda after and then Dr. Leo. He is to call if develops fever over 101F at home. He is tolerating diet with BM and pain is much improved. Attestations Medical Necessity Statement*: Patient with perforated diverticulitis. He was switched to oral antibiotics and if does not have fever in next 48 hours will be sent home Coding Level of Care Code 06481 Diagnoses Diverticular disease of intestine with perforation and abscess K57.80
[2023-05-01 20:00] VITALS: BP 123/82; PULSE 96; RESP 18; TEMP 36.2; O2SAT 97
[2023-05-01] MEDS: pantoprazole 40 mg SDV IVP (21:28)
[2023-05-02] VITALS: BP 128/84; PULSE 95; RESP 18; TEMP 36.3; O2SAT 98
[2023-05-02] MEDS: HYDROcodone-acetaminophen 7.5-325 mg Tablet 1 TAB PO ×3 (00:25→15:30)
[2023-05-02 04:00] VITALS: BP 115/77; PULSE 79; RESP 17; TEMP 36.6; O2SAT 98
[2023-05-02 08:00] VITALS: BP 117/77; PULSE 88; RESP 18; TEMP 36; O2SAT 98
[2023-05-02] MEDS: metroNIDAZOLE 500 MG Tablet PO ×2 (08:43→17:27)
[2023-05-02] MEDS: ciprofloxacin 500 mg Tablet PO (08:43)
[2023-05-02 11:35] VITALS: BP 129/88; PULSE 111; RESP 20; TEMP 36.2; O2SAT 99
--- NOTE | 2023-05-02 11:35 | PM.DCS ---
Discharge Providers Date of Admission: 04/17/23 11:13 Date of Discharge: May 02, 2023 Attending Provider at Admission: Syd Leo DO Attending Provider at Discharge: Syd Leo DO Consults: MD SOURAV Rojas Diagnoses at Discharge Discharge Diagnosis (1) Diverticular disease of intestine with perforation and abscess: Status: Acute Reason for Visit Reason for Visit: ABD Pain Hospital Course Hospital Course Patient admitted with perforated diverticulitis second lifetime episode and had two drains placed to drain abscess in LLQ and RLQ. Two other drains were drained aspirated out and about 150 cc returned and no drains placed. The RLQ aspirated collection was 7 cm and mid abdomen aspirated collection was about 3-4 cm. Patient WBC came down initially after drainage but was never normal. His WBC started to go back up but cultures came back 4-5 days later showing staph epi and zosyn resistant E. Coli. ID was consulted and placed him on meropenem and vanco. WBC began fluctuating up to 22k down to 14k. His low grade fever improved and he started to have BM and tolerated solid food. He developed a panniculitis from drain sites cephalad and distally and caudally to lower panniculus fold. some purulent type drainage was noted around drain. The erythema was not significant prior to D/C with having patient showering out wounds/skin around drains sites with hibiclens and painting skin around drain sites with betadine tid. Some purulent drainage still was present R>L side. Erythema also improved after getting him on right antibiotics. Repeat CT showed smaller cavities at drains and smaller undrained collections. The previously aspirated RLQ collection went from7 cm to 4cm and midline went from 3-4 cm to 2-3 cm. The radiologist did not think anything further needed to be done and would wait at least a week to repeat CT scan which ID agreed. CT also showed some air tracking along drains in subcutaneous fat and muscle but this was felt due to purulent drainage around catheters and clinically erythema resolved along panniculus with wound care and right antibiotics. Plan is to send patient home on Cipro and FLagyl. Patient to call for increased pain, N/V, redness around drains and especially fever over 101F. He will have repeat CT in a week and see ID Dr. Pineda to make further plans including removal of drain, need for more drains, need for any change to antibiotics including length of treatment. Patient will follow up with Dr. Leo in general surgery for future colonosocpy plans and need for abdominal elective colectomy in future. At time of dishcharge patient was not having any significant pain, N/V, tolerating diet with BM's, no high grade fevers, erythema along panniculus gone, drain output significantly decreased and thin, less drainage around drain exit sites along skin. Patient states he was feeling good. Physical Exam Narrative: Patient is a well developed well nourished and in NAD and is afebrile with vitals stable and is answering questions appropriately with a normal affect and is alert and oriented x3 HEENT: normocephalic with normal external ears and nonicteric, oral mucosa moist and dentition normal for age, trachea midline with no large masses visualized Heart: RRR, no gallops murmurs or rubs, normal PMI with no thrills Lungs: normal excursions, no loud audible wheezing, no subcutaneous emphysema Abdomen: nondistended, no gross hepatosplenomegaly, no masses, no rigidity or rebound, no loud borborygmi Neuro: nonfocal, HART, grossly normal sensation Musculoskeletal: good muscle tone, no fasciculations, normal gait Skin: pink warm and dry with no rashes or ecchymosis Vascular: good radial pulses, no ulceration, less than 2 second capillary refill in hand : deferred Urinary Catheter Management: Patton: Cath Placed During This Visit: yes, but has since been removed by the nurse Urinary Catheter Date of Insertion: 04/22/23 Urinary Catheter Time of Insertion: 13:30 Date Urinary Catheter Removed: 04/22/23 Time Urinary Catheter Discontinued: 15:35 Discharge Data Studies Completed and Pending Completed Studies During Hospitalization Category Date Time Status CT abdomen pelvis w con* [id number] Routine Cat Scan 04/20/23 08:[address] abdomen pelvis w con* [id number] Stat Cat Scan 04/29/23 10:[address] abdomen pelvis wo con [id number] Stat Cat Scan 04/17/23 09:[address] angio chest PE protcl [id number] Urgent Cat Scan 04/17/23 06:[address] drain retroperitoneal [id number] Routine Cat Scan 04/22/[address] drain retroperitoneal [id number] Routine Cat Scan 04/22/23 12:[address] guided aspiration [id number] Routine Cat Scan 04/22/[address] guided aspiration [id number] Routine Cat Scan 04/22/23 Completed CXRP [XR chest 1V portable [id number]] Routine Exams 04/29/23 17:28 Completed XR chest 1V portable [id number] Stat Exams 04/17/23 05:24 Completed US gall bladder [id number] Stat Ultrasound 04/17/23 06:18 Completed Pending at discharge Category Date Time Status Blood Culture AM LABS Lab 04/30/23 06:00 Results Wound Culture and Gram Stain Stat Lab 04/29/23 18:11 Results Radiology Impressions Chest CTA 04/17/23 06:00 IMPRESSION: 1. No CTA evidence of pulmonary embolism, thoracic aortic aneurysm or thoracic aortic dissection. 2. Hypoaeration of the lungs with minimal perihilar hazy opacities. Mild left and minimal right lower lobe basilar atelectasis. No regions of consolidation to suggest pneumonia. 3. Mild distal esophageal fold prominence, which could be related to esophagitis. Recommend correlation with clinical findings. 4. Degenerative changes of the lower thoracic spine, as noted above. Gallbladder Ultrasound 04/17/23 06:18 IMPRESSION: 1. [id number] distended gallbladder. No definite gallstones or gallbladder wall thickening. No biliary ductal dilatation. Exam overall limited, related to bowel gas. Needle Aspiration CT 04/22/23 00:00 IMPRESSION: 1. 10 Ukrainian pigtail catheters were placed into the pelvic and LEFT pericentral abdominal abscess cavities. Recommend catheter flushing 2 times a day with 5- 10cc Normal saline. 2. Successful aspiration of a RIGHT lower pelvic and a RIGHT pericentral abdominal abscess cavity with over 150 cc purulent material aspirated from the abscess cavities. 3. Fluid was sent for cultures. 4. No immediate complications. Retroperitoneal Abscess Drainage 04/22/23 12:30 IMPRESSION: 1. 10 [place] pigtail catheters were placed into the pelvic and LEFT pericentral abdominal abscess cavities. Recommend catheter flushing 2 times a day with 5- 10cc Normal saline. 2. Successful aspiration of a RIGHT lower pelvic and a RIGHT pericentral abdominal abscess cavity with over 150 cc purulent material aspirated from the abscess cavities. 3. Fluid was sent for cultures. 4. No immediate complications. Abdomen/Pelvis CT 04/29/23 10:20 IMPRESSION: 1. Significant interval improvement in the abdominal and pelvic abscesses with associated pigtail catheters described above. 2. Interval improvement in the peripheral enhancing RIGHT lower quadrant aspirated collection today measuring 4.4 x 3.3 CM. 3. Additional midline mesenteric collection measuring 2.5 cm has significantly improved and nearly resolved. 4. Subcutaneous air within the lower abdominal wall fat and pannus presumably due to recent skin infection about the drainage catheters. 5. Associated air in the rectus abdominis and abdominal wall musculature. Discussed with Earl Chen MD at 04/29/2023 12:29 PM. Chest X-Ray 04/29/23 17:28 IMPRESSION: No acute findings. Laboratory Results WBC 15.6 10^3/uL (4.0-10.0) H 04/30/23 06:13 RBC 3.80 10^6/uL (4.1-5.3) L 04/30/23 06:13 Hgb 11.7 g/dL (11.7-16.6) 04/30/23 06:13 Hct 36.7 % (42.0-52.0) L 04/30/23 06:13 MCV 96.6 fl (80-94) H 04/30/23 06:13 MCH 30.8 pg (28.0-34.0) 04/30/23 06:13 MCHC 31.9 g/dL (30.0-36.0) 04/30/23 06:13 RDW 14.3 % (12.1-15.1) 04/30/23 06:13 Plt Count 623 10^3/cmm (130-400) H 04/30/23 06:13 MPV 8.9 fL (7.4-10.4) 04/30/23 06:13 Neut % (Auto) 76.5 % 04/30/23 06:13 Lymph % (Auto) 10.8 % 04/30/23 06:13 Garfield % (Auto) 10.5 % 04/30/23 06:13 Eos % (Auto) 0.9 % 04/30/23 06:13 Baso % (Auto) 0.5 % 04/30/23 06:13 Neut # (Auto) 11.90 10^3/uL (1.8-7.7) H 04/30/23 06:13 Lymph # (Auto) 1.7 10^3/uL (0.8-4.8) 04/30/23 06:13 Garfield # (Auto) 1.6 10^3/uL (0.2-0.9) H 04/30/23 06:13 Eos # (Auto) 0.1 10^3/uL (0.0-0.8) 04/30/23 06:13 Baso # (Auto) 0.1 10^3/uL (0.0-0.1) 04/30/23 06:13 Nucleated RBC % (auto) 0 % 04/30/23 06:13 Total Counted 100 (0-100) 04/22/23 04:26 Atypical Lymphs % Not Reportable 04/22/23 04:26 Absolute Neutrophils 12.6 10^3/cmm (1.4-6.5) H 04/22/23 04:26 Segmented Neutrophils 73 % 04/22/23 04:26 Abs Segm Neuts (Man) 12.6 10/cmm (1.6-7.1) H 04/22/23 04:26 Band Neutrophils 0.0 % 04/22/23 04:26 Abs Band Neuts (Man) 0.0 10^3/cmm (0.0-1.2) 04/22/23 04:26 Lymphocytes (Manual) 11 % 04/22/23 04:26 Monocytes (Manual) 9.0 % 04/22/23 04:26 Absolute Monocytes 1.6 10^3/cmm (0.1-0.6) H 04/22/23 04:26 Eosinophils (Manual) 1 % 04/22/23 04:26 Absolute Eosinophils 0.1 10^3/cmm (0.0-0.7) 04/22/23 04:26 Basophils (Manual) Not Reportable 04/22/23 04:26 Metamyelocytes 1.0 % 04/22/23 04:26 Myelocytes 5.0 % 04/22/23 04:26 Nucleated RBCs # 0.0 /100WBC 04/30/23 06:13 Platelet Estimate Increased (Normal) 04/22/23 04:26 PT 14.80 SECONDS (12.1-14.9) 04/21/23 10:00 INR 1.12 (0.8-1.2) 04/21/23 10:00 APTT 22.3 SECONDS (23.9-36.7) L 04/21/23 10:00 Fibrinogen 759 mg/dL (174-498) H 04/21/23 10:00 D-Dimer 6.21 ug/mIFEU (0-0.59) H 04/17/23 05:20 Specimen Type Arterial 04/17/23 07:50 Sample Site Radial, right 04/17/23 07:50 ABG pH 7.37 (7.35-7.45) 04/17/23 07:50 ABG pCO2 36.2 mmHg (35-45) 04/17/23 07:50 ABG pO2 75.1 mmHg (80.0-100.0) L 04/17/23 07:50 ABG HCO3 21.1 mmol/L (22-26) L 04/17/23 07:50 ABG Base Excess -3.5 mmol/L (-2.0-2.0) L 04/17/23 07:50 Obie Test Pos 04/17/23 07:50 Hematocrit 48.1 % (42-52) 04/17/23 07:50 O2 Delivery Device Room air 04/17/23 07:50 FiO2 21.0 % 04/17/23 07:50 Learning And Development Intern ID Monro 04/17/23 07:50 Sodium 138 mmol/L (136-145) 04/30/23 06:13 Potassium 4.0 mmol/L (3.5-5.1) 04/30/23 06:13 Chloride 100 mmol/L (98-107) 04/30/23 06:13 Carbon Dioxide 29 mmol/L (22-29) 04/30/23 06:13 Anion Gap 13.0 (5-19) 04/30/23 06:13 BUN 9 mg/dL (6-20) 04/30/23 06:13 Creatinine 0.6 mg/dL (0.7-1.2) L 04/30/23 06:13 GFR Calculation 150.0 mL/min (90-130) H 04/30/23 06:13 Glucose 87 mg/dL (65-115) 04/30/23 06:13 Calculated Osmolality 284 mOsm/kg (285-295) L 04/30/23 06:13 Lactic Acid 1.3 mmol/L (0.5-2.2) 04/18/23 03:04 Lactic Acid (Sepsis) 1.6 mmol/L (0.5-2.2) 04/17/23 09:12 Calcium 8.8 mg/dL (8.5-10.5) 04/30/23 06:13 Phosphorus 3.4 mg/dL (2.5-4.5) 04/24/23 04:55 Magnesium 1.9 mg/dL (1.7-2.3) 04/26/23 09:58 Total Bilirubin 0.4 mg/dL (0.15-1.2) 04/30/23 06:13 AST 27 U/L (0-40) 04/30/23 06:13 ALT 128 U/L (0-41) H 04/30/23 06:13 Alkaline Phosphatase 88 U/L (40-130) 04/30/23 06:13 Troponin T Baseline 10 ng/L (0-15) 04/17/23 05:20 Troponin T 120 Minute 6.93 ng/L (0-15) 04/17/23 07:20 Delta Troponin T -3.07 ABS# (0-10) L 04/17/23 07:20 Troponin T Hi Sens 6Hr 6.00 ng/L (0-15) 04/17/23 11:29 Troponin T Hi Sens 6Hr Delta -4.0 ng/L (0-12) L 04/17/23 11:29 C-Reactive Protein 367.2 mg/L (0.0-4.9) H 04/17/23 05:20 Total Protein 7.2 g/dL (6.6-8.7) 04/30/23 06:13 Albumin 3.3 g/dL (3.5-5.2) L 04/30/23 06:13 Globulin 3.9 g/dL (1.3-4.6) 04/30/23 06:13 Lipase 15 U/L (13-60) 04/17/23 05:20 Urine Color Light yellow (Yellow) 04/30/23 02:15 Urine Appearance Clear (CLEAR) 04/30/23 02:15 Urine pH 6 (5-7) 04/30/23 02:15 Ur Specific Crawford 1.015 (1.005-1.030) 04/30/23 02:15 Urine Protein Neg (Negative) 04/30/23 02:15 Urine Glucose (UA) Norm (Normal) 04/30/23 02:15 Urine Ketones Negative (Negative) 04/30/23 02:15 Urine Blood 2+ (Negative) H 04/30/23 02:15 Urine Nitrate Negative (Negative) 04/30/23 02:15 Urine Bilirubin Neg (Negative) 04/30/23 02:15 Urine Urobilinogen Neg mg/dL (Negative) 04/30/23 02:15 Ur Leukocyte Esterase Negative (Negative) 04/30/23 02:15 Urine RBC 5-10 /hpf (0-2) H 04/30/23 02:15 Urine WBC None /hpf (0-5) 04/30/23 02:15 Ur Squamous Epith Cells None /hpf (0-5) 04/30/23 02:15 Amorphous Sediment Not Reportable 04/30/23 02:15 Urine Bacteria Trace /hpf (NONE) 04/30/23 02:15 Hyaline Casts 15-25 /lpf H 04/17/23 07:18 Urine Mucus 1+ /hpf 04/17/23 07:18 Nasal Influ A H1 2009 PCR Not detected (NOT DETECT) 04/29/23 22:00 Vancomycin Trough 13.5 ug/mL (10-15) 04/29/23 10:34 Adenovirus (PCR) Not detected (NOT DETECT) 04/29/23 22:00 C. pneumoniae DNA (PCR) Not detected (NOT DETECT) 04/29/23 22:00 Coronavirus 229E (PCR) Not detected (NOT DETECT) 04/29/23 22:00 Human Metapneumovir PCR Not detected (NOT DETECT) 04/29/23 22:00 Influenza A (H1) PCR Not detected (NOT DETECT) 04/29/23 22:00 Influenza A (H3) PCR Not detected (NOT DETECT) 04/29/23 22:00 Influenza Type A (PCR) Not detected (NOT DETECT) 04/29/23 22:00 Influenza Type B (PCR) Not detected (NOT DETECT) 04/29/23 22:00 M. pneumoniae (PCR) Not detected (NOT DETECT) 04/29/23 22:00 Parainfluenza 1 (PCR) Not detected (NOT DETECT) 04/29/23 22:00 Parainfluenza 2 (PCR) Not detected (NOT DETECT) 04/29/23 22:00 Parainfluenza 3 (PCR) Not detected (NOT DETECT) 04/29/23 22:00 Parainfluenza 4 (PCR) Not detected (NOT DETECT) 04/29/23 22:00 RSV Type A (PCR) Not detected (NOT DETECT) 04/29/23 22:00 RSV Type B (PCR) Not detected (NOT DETECT) 04/29/23 22:00 Entero/Rhino (PCR) Not detected (NOT DETECT) 04/29/23 22:00 SARS-CoV-2 (PCR) Not detected (NOT DETECT) 04/29/23 22:00 Procedures Performed IR placed percutaneous drains into diverticular abscesses x2 in RLQ and LLQ. He aspirated two collections as well. Vitals Last Vital Signs Temp 96.8 F L 05/02/23 08:00 Pulse 88 05/02/23 08:00 Resp 18 05/02/23 08:00 BP 117/77 05/02/23 08:00 Pulse Ox 98 05/02/23 08:00 O2 Del Method Room Air 05/02/23 08:00 O2 Flow Rate 0 05/02/23 08:00 Discharge Plan Discharge Patient Disposition: Home Condition: Serious Prescriptions: New hydrocodone-acetaminophen 7.5-325 mg tablet 1 tab PO Q6H PRN (Reason: pain) Qty: 30 0RF Rx Instructions: do not drink or drive with medication docusate sodium [Colace] 100 mg capsule 100 mg PO DAILY PRN (Reason: for hard stools) Qty: 20 4RF ciprofloxacin HCl 500 mg tablet 500 mg PO BID Qty: 28 1RF metronidazole 500 mg tablet 500 mg PO TID Qty: 42 1RF chlorhexidine gluconate [Hibiclens] 4 % liquid 1 applic topical Q5M Qty: 237 3RF Rx Instructions: wash out drain site skin in shower daily povidone-iodine [Betadine] 10 % solution 1 applic topical BID Qty: 236 3RF Rx Instructions: apply to skin with cotton ball at drain exit site Discontinued Coamo 5-325 mg Tablet 1 tab PO Q6H PRN (Reason: Pain) amoxicillin-pot clavulanate 875-125 mg tablet 1 tab PO BID Discharge Orders: Discharge Order (Routine); Ordered 05/02/23 Ordered By: Earl Chen Other Ambulatory Orders: CT abdomen pelvis w con* [id number] (Routine) Timeframe: 1 Week Facility: [facility] - Location: [facility] Ordered By: Earl Chen Referrals: Syd Leo DO [Physician] - 05/04/23 9:50 am Cindi Pineda MD [Hospitalist] - 05/13/23 ([address] scan abd/pelvis with po and IV contrast before being seen Message sent to clinic.) Dee Baca DO [Referring] - 4-7 days (Please call tomorrow morning to set up a hospital discharge appt due to clinic being closed on wednesday at time of discharge.) Discharge Diet: As Directed Discharge Activity: Limit activity as instructed Patient Instructions: Diverticulitis, Ciprofloxacin (By mouth), Hydrocodone/Acetaminophen (By mouth), Metronidazole (By mouth), Laxative, Stool Softeners (By mouth), Low Fiber Diet, Acute Kidney Injury (GEN), Sepsis (GEN), Acute Wound Care (GEN), Opioid Safety Activity Restrictions/Additional Instructions: Call for increased abdominal pain or N/V. call for fever over 101F. Call for infection around drains with increased redness/swelling/warmth/pain/increased drainage. Use cotton swabs to apply betadine around tube skin sites at least BID (buy betadine OTC) Wash skin around drains with hibiclens soap and shower water at least daily then cover drain sites with drain guaze (buy hibiclens/chlorhexidine OTC). See Dr. Leo in followup and Miriam in ID. Get CT abdomen in a week and go over results with Ahmet/Miriam. No bath/pool/laurent while drains in place and at least 2 weeks after they are removed. Do not drink or drive while on narcotics. Low fiber diet for a month. No heavy lifiting over 20 pounds. No strenous exercise Discharge Attestations Time Spent in Discharge Care*: greater than 30 min Quality Metrics Clinical Quality Measures [ No reported AMI, CVA or VTE this stay] Coding Level of Care Code Acute Code for Chg Fwd Diagnoses Diverticular disease of intestine with perforation and abscess K57.80
--- NOTE | 2023-05-02 15:31 | PC.NURSE ---
Discharge pending transport from patients .
[2023-05-02 16:00] VITALS: BP 135/86; PULSE 129; RESP 18; TEMP 36.4; O2SAT 100
--- NOTE | 2023-05-02 17:20 | P.PN_ITS ---
Subjective Subjective: No new complaints since last seen. Continues to do well. Now has current afebrile. Stable leukocytosis at 15. Denies any abdominal pain. Tolerating oral diet. Passing flatus. Plan to be discharged later today with drains in place. Medications: Reviewed: Yes Vitals/I&O/Wt Last Vital Signs Temp 97.5 F L 05/02/23 16:00 Pulse 129 H 05/02/23 16:00 Resp 18 05/02/23 16:00 BP 135/86 05/02/23 16:00 Pulse Ox 100 05/02/23 16:00 O2 Del Method Room Air 05/02/23 16:00 O2 Flow Rate 0 05/02/23 08:00 Physical Exam Narrative: General: No acute distress, AO x3 HEENT: PERRLA, pupils bilaterally equal and reactive, pallors not present Chest: Normal vesicular breath sounds, no added sounds, equal good air entry bilaterally CVS: S1-S2 regular, no murmurs, no tachycardia, no gallops, no rubs Abdomen: Soft, mldly distended, KERRI drains noted over lower abdomen with bloody serosanginous output, signs of cellulitis over lower abdomen with pus like discharge at insertion sites. No gross fluctuance noted. Neuro: No focal deficits, no facial deformity, AO x3, power 5/5 in all limbs Urinary Catheter Management: Pat[place]: Cath Placed During This Visit: yes, but has since been removed by the nurse Urinary Catheter Date of Insertion: 04/22/23 Urinary Catheter Time of Insertion: 13:30 Date Urinary Catheter Removed: 04/22/23 Time Urinary Catheter Discontinued: 15:35 Data 04/30/23 06:13 04/30/23 06:13 A&P Assessment and plan (1) Skin abscess: (2) Diverticular disease of intestine with perforation and abscess: Plan 37-year-old male without prior history of any abdominal issues admitted to the hospital currently on April 17, 2023 with 3-day history of right lower quadrant pain. He was found to have a complicated diverticulitis with microperforation and an early abscess approximately 3 cm in the pelvis which appeared to have been worsening on serial exams. On April 22, 2023 he underwent pelvic drain pl acement and aspiration by radiology. There was successful aspiration of the right lower pelvic and right pericentral abdominal abscess cavity with drainage of 150 cc of purulent material. Culture from this material has revealed growth of E. coli which is resistant to piperacillin/tazobactam which patient had been receiving until April 25, 2023. It appears there was delay in identifying the organism. On April 26, 2023 antibiotics were changed to meropenem and vancomycin had been also recently added due to noted lower extremity cellulitis and drainage from insights of KERRI insertion. Since then patient reports clinical improvement. He states that his abdominal pain is much improved. He is able to tolerate a diet. He is feeling much better, requiring minimal pain medication. He is passing flatus and has had bowel movements. CT of the abdomen repeated most recently on April 30, 2023 shows overall improving abscesses. His clinical picture and radiological imaging appear to be compatible. Patient has now become afebrile. Leukocytosis is persisting but stable at 15,000, trending down from 20,000. No other infectious source evident and spite of evaluation. No pneumonia chest x-ray Unremarkable UA Negative respiratory viral panel Negative blood culture Given overall clinical improvement, patient can discharge on p.o. ciprofloxacin and metronidazole. Plan to follow-up in the infectious disease clinic on May 13, [address] abdomen pelvis which will eventually determine the c the duration of antibiotic for him. Attestations Medical Necessity Statement*: Per admitting Coding Level of Care Code Acute Code for [facility] Diagnoses Skin abscess L02.91 Diverticular disease of intestine with perforation and abscess K57.80
[2023-05-02] MEDS: HYDROcodone-acetaminophen 5-325 mg Tablet 2 TAB PO (17:27)
== END 2023-05-02 17:30 | disposition home or self-care (01) | DRG 392 ==
LOC: ER 11:27 → MEDSURG 11:41
PROVIDERS: Emergency Medicine; Radiology Neuroradiology; Specialist; Student in an Organized Health Care Education/Training Program; Admitting Provider Surgery; Emergency Provider Family Medicine; Visit Provider Surgery
PROC: 0W9G30Z Drainage of Peritoneal Cavity with Drainage Device, Percutaneous Approach (ICD-10-PCS; CPT 75989; principal; 2023-04-22 12:30)
DX: K57.20 Diverticulitis of large intestine with perforation and abscess without bleeding (principal); Z16.29 Resistance to other single specified antibiotic; N17.9 Acute kidney failure, unspecified; B96.20 Unspecified Escherichia coli [E. coli] as the cause of diseases classified elsewhere; M79.3 Panniculitis, unspecified; Z79.891 Long term (current) use of opiate analgesic
CPT/HCPCS: 36415; 36600; 49406; 51702; 71045; 71275; 74176; 74177; 76705; 77012; 80048; 80053; 80202; 81001; 82803; 83605; 83690; 83735; 84100; 84484; 85007; 85025; 85049; 85378; 85384; 85610; 85730; 86140; 87040; 87070; 87075; 87077; 87086; 87186; 87205; 87486; 87493; 87581; 87633; 93005; 96365; 96372; 96375; 96376; 99285; C9113; J0696; J1170; J1650; J2185; J2250; J2270; J2370; J2405; J2543; J2704; J3010; J3370; J3475; J3480; J3490; J7030; Q9967

== ENCOUNTER 2023-05-12 14:29 | Outpatient (CLI) | payer OTHER, SELFPAY ==
[2023-05-12] MEDS: iohexol 350 mg/mL 500 mL Btl (per mL) IV (15:04)
--- NOTE | 2023-05-12 15:30 | CT_ITS ---
WS: [id number] CT ABDOMEN PELVIS TECHNIQUE: Contrast-enhanced CT of the abdomen and pelvis with coronal and sagittal reformatted image s. CLINICAL INFORMATION: K57.80 - Diverticulitis of intestine, part unspecified, w... COMPARISON: CT April 29, 2023 DLP: 728.[address] scans at [facility] use at least one of these dose optimization techniques: automated e xposure control; mA and/or kV adjustment per patient size (includes targeted exams where dose is matc hed to clinical indication); or iterative reconstruction. FINDINGS: Interval removal of the previously described pigtail catheters. Free intraperitoneal air with layerin g fluid below the diaphragm and anterior to the liver is new since the prior studies. This may be due to recent drain removal. A few scattered pockets of free intraperitoneal air in the mesentery. Drain tracks are visualized in the subcutaneous soft tissues. Improved but persistent air within the abdom inal pannus from prior cutaneous infection. RIGHT lower quadrant fluid collection with air-fluid level measures 4.5 x 3.3 cm compared to 4.4 x 3. 5 cm previous. Associated air-fluid level. New small fluid collection mainly containing air and a sma ll amount of fluid just medial to the cecum measuring 2.9 x 4.5 CM. Previously described abscesses co ntrol by drain essentially resolved compared to previous. Small amount of edema and induration in the lower abdominal mesentery. Persistent diffuse thickening of the sigmoid colon compatible with histor y of diverticulitis. Normal appendix in the RIGHT lower quadrant. Tiny amount of scattered fluid with a few air-fluid levels in the previously described abscess along the dorsal aspect of the bladder controlled by the previous drain. No significant residual drainable abscess in this area. Mild diffuse bladder wall thickening likely reactive. Lung bases are well aerated. Subsegmental atele ctasis RIGHT lower lobe. No other significant changes compared to previous. CT/CT abdomen pelvis w con* [id number] IMPRESSION: 1. Interval removal of previously described pigtail drains. 2. Free air is visualized layering under the diaphragm and anterior to the erika er in the RIGHT upper quadrant. A few scattered locules of free intraperitoneal air. This may be due to recent removal of the pigtail catheters. Recommend cor relation with clinical symptoms and interval follow-up. 3. Collections controlled by the previous pigtail catheters significantly impr nash and essentially resolved with a small amount of scattered residual air and fluid along the dorsal bladder although too small to drain percutaneously. 4. Persistent RIGHT lower quadrant fluid collection with air-fluid level is st able measuring 4.5 x 3.3 cm with more air today. 5. New air-fluid collection just medial to the cecum with mainly internal air measures 4.5 x 2.9 CM. 6. No other significant changes compared to previous. Notified Cindi Pineda MD at 05/12/2023 330PM.
== END 2023-05-12 14:30 | disposition home or self-care (01) ==
PROVIDERS: PCP Nurse Practitioner Family; Visit Provider Student in an Organized Health Care Education/Training Program
DX: K57.80 Diverticulitis of intestine, part unspecified, with perforation and abscess without bleeding (principal)
CPT/HCPCS: 74177; Q9967

== ENCOUNTER → 2023-05-13 13:51 | Outpatient (BNVA) | payer OTHER, SELFPAY | PROVIDERS: PCP Nurse Practitioner Family; Visit Provider Student in an Organized Health Care Education/Training Program | DX: L02.91 Cutaneous abscess, unspecified (principal); K57.80 Diverticulitis of intestine, part unspecified, with perforation and abscess without bleeding | CPT/HCPCS: 87070; 87075; 87205 ==

== ENCOUNTER 2023-06-16 08:12 | Outpatient (CLI) | payer OTHER, SELFPAY ==
--- NOTE | 2023-06-16 08:00 | CT_ITS ---
WS: [id number] CT ABDOMEN PELVIS TECHNIQUE: Contrast-enhanced CT of the abdomen and pelvis with coronal and sagittal reformatted image s. CLINICAL INFORMATION: follow up compliacted diverticulitis COMPARISON: Comparison 05/12/2023 and multiple prior studies DLP: 593.[address] scans at [facility] use at least one of these dose optimization techniques: automated e xposure control; mA and/or kV adjustment per patient size (includes targeted exams where dose is matc hed to clinical indication); or iterative reconstruction. FINDINGS: The numerous previously described abscesses and fluid collections appear to have resolved compared to the prior studies. No residual drainable fluid collection or abscess visualized. Subcutaneous air co llection in the ventral pannus may be due to recent procedure measuring 5.3 x 2.4 cm. Recommend clini raymundo correlation. Incidental fat-containing umbilical hernia. Evidence of prior drain tracts in the subcutaneous soft t issues. Residual inflammatory changes in the RIGHT lower quadrant mesentery with a few reactive lymph nodes. Mild residual diffuse thickening of the sigmoid colon with mild surrounding induration compatible wit h history of complicated perforated diverticulitis. Recommend correlation with clinical symptoms. No evidence of high-grade small or large bowel obstruction. Mild diffuse fatty infiltration of the liver. Normal portal vein and splenic vein. Normal gallbladder . Lung bases are well aerated. Normal spleen. Normal GE junction. Adrenal glands are normal. Normal renal parenchymal enhancement. N o hydronephrosis. A few small incidental simple appearing renal cysts. Normal pancreatic parenchymal enhancement. Portal vein and splenic vein are patent. Normal caliber abdominal aorta. Celiac and SMA appear patent. Mild chronic anterior wedging in the lower thoracic and upper lumbar spine. IMPRESSION: 1. Previously described abscesses and fluid collections in the RIGHT lower quadrant appear to have r esolved compared to previous. No residual drainable abscess or fluid collection. 2. Subcutaneous air collection in the ventral pelvic subcutaneous fat may be due to recent procedure . Recommend clinical correlation. 3. Mild residual thickening of the sigmoid colon with mild surrounding induration compatible with hi story of diverticulitis with perforation. Recommend correlation with clinical symptoms for residual d iverticulitis. 4. No other suspicious or new findings.
[2023-06-16] MEDS: iohexol 350 mg/mL 500 mL Btl (per mL) IV (08:46)
== END 2023-06-16 08:13 | disposition home or self-care (01) ==
PROVIDERS: PCP Nurse Practitioner Family; Visit Provider Student in an Organized Health Care Education/Training Program
DX: K57.80 Diverticulitis of intestine, part unspecified, with perforation and abscess without bleeding (principal)
CPT/HCPCS: 74177; Q9967